=== PATIENT | male | born 1970 | race Caucasian/White ===

== ENCOUNTER 2017-02-14 12:18 | Inpatient (IN) | payer MEDICARE, MEDICAID ==
[2017-02-14] MEDS ORDERED: NALOXONE HCL INJ 2 MG/2 ML DISP.SYRIN ONE (12:52)
--- NOTE | 2017-02-14 12:55 | ER Document Report ---
ED Respiratory Problem <HERBERTH MELO - Last Filed: 02/14/17 15:10> - General Mode of Arrival: Medic Information source: Patient, Emergency Med Personnel - HPI Patient complains to provider of: Short of breath Associated symptoms: Other - See above <KRISTAN YING - Last Filed: 02/14/17 15:13> - General Chief Complaint: Breathing Difficulty Stated Complaint: short of breath Time Seen by Provider: 02/14/17 12:55 Notes: Patient is a 46 year old male, with a past medical history including ulcers, who presents to the emergency department via EMS complaining of shortness of breath. Patient is an alcoholic and reports his last drink was yesterday, normally patient will consume a 12 pack of beer a day and does experience withdrawal seizures, patient states that he is currently felling shaky but has not had a seizure. Patient reports blurry vision and back pain which are not new. Per EMS patient has vomited with brown emesis. Patient denies chest pain, and blood in stools. Patient is not on home oxygen. Patient reports that he takes Percocet daily and did take one this morning but vomited it up. (KRISTAN YING) Past Medical History - General Information source: Patient - Social History Smoking Status: Current Every Day Smoker Frequency of alcohol use: Heavy Family History: Reviewed & Not Pertinent Pulmonary Medical History: Reports: Hx Pneumonia GI Medical History: Reports: Hx Ulcer <KRISTAN YING - Last Filed: 02/14/17 15:13> Review of Systems - Review of Systems Constitutional: No symptoms reported EENT: No symptoms reported Cardiovascular: denies: Chest pain Respiratory: See HPI, Short of breath Gastrointestinal: See HPI, Vomiting. denies: Blood streaked bowels Genitourinary: No symptoms reported Male Genitourinary: No symptoms reported Musculoskeletal: No symptoms reported Skin: No symptoms reported Hematologic/Lymphatic: No symptoms reported Neurological/Psychological: Tremor - shaky -: Yes All other systems reviewed and negative <KRISTAN YING - Last Filed: 02/14/17 15:13> Physical Exam - Vital signs Interpretation: Normal - General General appearance: Alert - HEENT Head: Normocephalic, Atraumatic - Respiratory Respiratory status: No respiratory distress Chest status: Nontender Breath sounds: Wheezing - bilateral Chest palpation: Normal - Cardiovascular Rhythm: Regular Heart sounds: Normal auscultation Murmur: No Pulses: Normal: Femoral, Dorsalis pedis - Abdominal Inspection: Normal Distension: No distension Bowel sounds: Normal Tenderness: Nontender Organomegaly: No organomegaly - Back Back: Normal, Nontender - Extremities General upper extremity: Normal inspection General lower extremity: Normal inspection - Neurological Neuro grossly intact: Yes Cognition: Normal Orientation: AAOx4 Romel Coma Scale Eye Opening: Spontaneous Romel Coma Scale Verbal: Oriented Romel Coma Scale Motor: Obeys Commands [place] Coma Scale Total: 15 Speech: Normal - Psychological Associated symptoms: Normal affect, Normal mood - Skin Skin Temperature: Warm Skin Moisture: Dry Skin Color: Normal <DEONNAKRISTAN - Last Filed: 02/14/17 15:13> - Vital signs Vitals: Temp Pulse Resp BP Pulse Ox 99.9 F 132 H 30 H 97/67 L 89 L 02/14/17 12:42 02/14/17 12:42 02/14/17 12:42 02/14/17 12:42 02/14/17 12:42 Course - Laboratory Result Diagrams: 02/14/17 12:50 02/14/17 12:50 <HERBERTH MELO - Last Filed: 02/14/17 15:10> - Laboratory Result Diagrams: 02/14/17 12:50 02/14/17 12:50 - Consults Dr. Silva Time consulted: 15:06 Consulted provider: will see as inpatient, other <KRISTAN YING - Last Filed: 02/14/17 15:13> - Re-evaluation Re-evalutation: 02/14/17 12:57 Patient presents the emergency department via EMS with chief complaint of difficulty breathing. Patient is a chronic alcoholic normally drinks about 12 or more beers a day. States he has not had a drink since yesterday. Says he has had a history of alcohol withdrawal with seizures in the past. Says he is not having any symptoms of withdrawal today. Had a pneumonia episode a couple months back and continues to smoke with a history of COPD. Also has a history of upper GI bleed with ulcers. He has been seen and evaluated in [place] and had upper and lower GI scopes and was diagnosed with ulcers in the past. He says his primary care physician is a local nurse practitioner physician speech language assistant who gives him 120 Percocet a month but does not know that he drinks alcohol with it. He denies any additional NSAID use. He denies any chest pain or pressure says he is never had a heart attack in the past. Denies any nausea vomiting or urinary symptoms. EMS stated that he had an episode of vomiting which was brown but it looked like coffee ground. He reports a normal bowel movement yesterday with no blood in it. On examination he is tachycardic rate in the 160s. Pulse ox is 8688% on room air. Blood pressure is 91/61. 2 large- bore IVs are started patient is given fluids Narcan and placed on oxygen. EKG chest x-ray stat labs got vomit at the bedside within a Gastroccult. Additional laboratory evaluation including liver enzymes lactic acid. Abdomen is soft no acute tenderness guarding rebound rigidity 02/14/17 15:10 Patient with presentation to the emergency department workup for SIRS sepsis criteria improved blood pressure with IV fluids remains tachycardic but not as tachycardic as he was. Acute bilateral pneumonia blood cultures and IV antibiotics oxygen and breathing treatments. Also hypomagnesemic order the magnesium. He had an episode of vomiting where he was retching on the ambulance before he got here vomit was brown with some bright blood in it likely a Adri-Wan tear. No active vomiting in the vomit is slightly Gastroccult positive brown stool from below. The hospitalist who has agreed to admit to the hospital to the IMC unit. (HERBERTH MELO) - Vital Signs Vital signs: Temp Pulse Resp BP Pulse Ox 99.9 F 132 H 27 H 116/80 95 02/14/17 12:42 02/14/17 12:42 02/14/17 13:26 02/14/17 13:26 02/14/17 13:38 - Laboratory Laboratory results interpreted by me: 02/14/17 02/14/17 02/14/17 12:50 12:50 12:50 WBC 11.6 H RBC 4.21 L Hgb 10.3 L Hct 33.3 L MCV 79 L MCH 24.5 L MCHC 31.0 L RDW 21.0 H Band Neutrophils % 17 H Lymphocytes % (Manual) 2 L Abs Neuts (Manual) 11.0 H Abs Lymphs (Manual) 0.2 L Carbonic Acid ABG pH ABG pCO2 ABG pO2 ABG O2 Saturation Sodium 135.7 L Chloride 96 L Creatinine 1.61 H Est GFR ( Amer) 56 L Est GFR (Non-Af Amer) 46 L Glucose 71 L Calcium 8.0 L Magnesium 0.9 L* Albumin 3.1 L 02/14/17 13:40 WBC RBC Hgb Hct MCV MCH MCHC RDW Band Neutrophils % Lymphocytes % (Manual) Abs Neuts (Manual) Abs Lymphs (Manual) Carbonic Acid 1.52 H ABG pH 7.30 L ABG pCO2 50.4 H ABG pO2 135.2 H ABG O2 Saturation 98.4 H Sodium Chloride Creatinine Est GFR ( Amer) Est GFR (Non-Af Amer) Glucose Calcium Magnesium Albumin Critical Care Note - Critical Care Note Total time excluding time spent on procedures (mins): 65 <HERBERTH MELO - Last Filed: 02/14/17 15:10> Discharge - Discharge Admitting Provider: Hospitalist Unit Admitted: IMCU <HERBERTH MELO - Last Filed: 02/14/17 15:10> <KRISTAN YING - Last Filed: 02/14/17 15:13> - Discharge Clinical Impression: acute bilateral pneumonia, Alcoholism, Hypomagnesemia Vomiting Qualifiers: Vomiting type: unspecified Vomiting Intractability: unspecified Nausea presence : unspecified Qualified Code(s): R11.10 - Vomiting, unspecified Condition: Stable Disposition: ADMITTED INPATIENT Scribe Attestation: 02/14/17 12:59 I personally performed the services described in the documentation reviewed the documentation recorded by my scribe in my presence and it accurately and completely records my words and actions (HERBERTH MELO) Scribe Documentation - Scribe Written by Aram:: aram Villalba, 02/14/17, [id number] acting as scribe for :: Gordon <KRISTAN YING - Last Filed: 02/14/17 15:13>
[2017-02-14] MEDS ORDERED: NORMAL SALINE 1000 ML 2,000 ML IV ONE (12:56)
[2017-02-14 13:29] LABS: HEMATOCRIT 33.3 % (37.9-51.0); HEMOGLOBIN 10.3 g/dL (13.5-17.0); HGB HCT DIFFERENCE -2.4; MEAN CORPUSCULAR HEMOGLOBIN 24.5 pg (27.0-33.4); MEAN CORPUSCULAR VOLUME 79 fl (80-97); RED BLOOD COUNT 4.21 10^6/uL (4.35-5.55); WHITE BLOOD COUNT 11.6 10^3/uL (4.0-10.5)
[2017-02-14 13:33] LABS: PROTHROMBIN TIME 13.3 SEC (11.4-15.4)
[2017-02-14 13:42] LABS: ALANINE AMINOTRANSFERASE 32 U/L (21-72); ALBUMIN 3.1 g/dL (3.5-5.0); ALKALINE PHOSPHATASE 82 U/L (38-126); ANION GAP 15 (5-19); ASPARTATE AMINO TRANSFERASE 46 U/L (17-59); BILIRUBIN,DIRECT 0.4 mg/dL (0.0-0.4); BILIRUBIN,TOTAL 0.6 mg/dL (0.2-1.3); BLOOD UREA NITROGEN 8 mg/dL (7-20); CARBON DIOXIDE 25 mmol/L (22-30); CHLORIDE 96 mmol/L (98-107); CREATININE RESULT 1.61 mg/dL (0.52-1.25); GLUCOSE 71 mg/dL (75-110); POTASSIUM 3.6 mmol/L (3.6-5.0); SODIUM 135.7 mmol/L (137-145); TOTAL PROTEIN 6.9 g/dL (6.3-8.2)
[2017-02-14 13:49] LABS: BASOPHILS % (MANUAL) 0 % (0-2); EOSINOPHILS % (MANUAL) 0 % (0-6); LYMPHOCYTES % (MANUAL) 2 % (13-45); TOTAL CELLS COUNTED 100
[2017-02-14 13:50] LABS: ANISOCYTOSIS 2+; BAND NEUTROPHILS % (MANUAL) 17 % (3-5); HYPOCHROMASIA 2+; MICROCYTOSIS 1+; POLYCHROMASIA SLIGHT
[2017-02-14 14:09] LABS: ARTERIAL BLOOD BASE EXCESS -2.8 mmol/L; ARTERIAL BLOOD O2 SATURATION 98.4 % (94-98)
[2017-02-14] MEDS ORDERED: AZITHROMYCIN INJ 500 MG VIAL IV ONE (14:48)
[2017-02-14] MEDS ORDERED: CEFTRIAXONE INJ 1000 MG VIAL IV ONE (14:48)
[2017-02-14] MEDS: MAGNESIUM SULFATE/D5W 100 ML IV SCH ×2 (15:10→16:21)
--- NOTE | 2017-02-14 15:14 | Progress Note ---
Provider Note Provider Note: RAMIRO ARNOLD Search Criteria: Last Name 'Ramiro' and First Name 'Sang' and = [birth year] ' and Request Period = '08/18/16' to 02/14/17' - 6 out of 6 Recipients Selected. Fill Date Product, Str, Form Qty Days Pt ID Prescriber Written RX# N/R* Pharm MED+ ------ ---- --------- --- ------- ----- --------- 01/30/2017 OXYCODONE HCL 15 MG TABLET 120.00 30 [id number] 01/30/2017 [id number] N [id number] 90.0 01/28/2017 ALPRAZOLAM 1 MG TABLET 90.00 30 [id number] 12/29/2016 [id number] N [id number] 00.0 12/31/2016 OXYCODONE HCL 15 MG TABLET 120.00 30 [id number] 12/31/2016 [id number] N [id number] 90.0 12/29/2016 ALPRAZOLAM 1 MG TABLET 90.00 30 [id number] 10/03/2016 [id number] R [id number] 00.0 12/01/2016 OXYCODONE HCL 15 MG TABLET 120.00 30 [id number] 12/01/2016 [id number] N [id number] 90.0 11/28/2016 ALPRAZOLAM 1 MG TABLET 90.00 30 [id number] 10/03/2016 [id number] R [id number] 00.0 11/03/2016 OXYCODONE HCL 15 MG TABLET 120.00 30 [id number] 10/31/2016 [id number] N [id number] 90.0 10/29/2016 ALPRAZOLAM 1 MG TABLET 90.00 30 [id number] 10/03/2016 [id number] N [id number] 00.0 10/03/2016 OXYCODONE HCL 15 MG TABLET 120.00 30 [id number] 10/03/2016 [id number] N [id number] 90.0 09/29/2016 ALPRAZOLAM 1 MG TABLET 90.00 30 [id number] 08/04/2016 [id number] R [id number] 00.0 09/01/2016 ALPRAZOLAM 1 MG TABLET 90.00 30 [id number] 08/04/2016 [id number] 00.0 [id number] CHRISTA ERVIN; [facility], [address] , [address], [facility] [address] [id number] [facility]; [facility], [address], [address], S [id number] RAMIRO Jenkins, [facility] 68; [address] [facility] [id number] RAMIRO ARNOLD, [facility] 68; [facility] [address] [id number] RAMIRO ARNOLD, [facility] 68; [address] [id number] [id number] RAMIRO Jenkins, [facility] 68; [address] [facility] [id number] RAMIRO ARNOLD, [facility] 68; [address], [facility] [address] [id number] RAMIRO ARNOLD [facility] 68; [address], [facility] [address]
[2017-02-14] MEDS ORDERED: (PENDING PHARMACY ID) (Esomeprazole Magnesium [Nexium 24hr] 40 MG) PO SCH (16:15)
[2017-02-14] MEDS ORDERED: LEVALBUTEROL HCL NEB 0.63 MG/3 ML AMPUL NEB PRN (16:15)
[2017-02-14] MEDS ORDERED: [UNRECOGNIZED DRUG - OTHER] PO PRN (16:40)
[2017-02-14] MEDS ORDERED: OXYCODONE HCL IR 5 MG TABLET PO PRN (17:01)
[2017-02-14] MEDS ORDERED: LANSOPRAZOLE 30 MG TAB.RAP.DR PO ONE (17:30)
--- NOTE | 2017-02-14 17:47 | EKG REPORT ---
SEVERITY:- BORDERLINE ECG - SINUS TACHYCARDIA PROBABLE LEFT ATRIAL ABNORMALITY BORDERLINE LEFT AXIS DEVIATION : Confirmed by: Dayanara Tmo MD 14-Feb-2017 17:46:53
[2017-02-14] MEDS: GABAPENTIN 300 MG CAPSULE PO SCH (17:53)
[2017-02-14] MEDS: MAGNESIUM OXIDE 400 MG TABLET PO SCH (17:54)
[2017-02-14] MEDS: LORAZEPAM 1 MG TABLET PO PRN ×2 (17:54→22:13)
[2017-02-14] MEDS: [UNRECOGNIZED DRUG - OTHER] PO PRN (17:54)
[2017-02-14] MEDS: IMIPENEM/CILASTATIN SODIUM 500 MG in NORMAL SALINE 100 ML IV SCH ×2 (17:59→23:43)
[2017-02-14 18:50] LABS: APPEARANCE,URINE SLIGHTLY-CLOUDY; BILIRUBIN,URINE NEGATIVE (NEGATIVE); GLUCOSE, URINE NEGATIVE (NEGATIVE); KETONES,URINE TRACE mg/dL (NEGATIVE); LEUKOCYTE ESTERASE,URINE NEGATIVE (NEGATIVE); NITRITE,URINE NEGATIVE (NEGATIVE); PROTEIN,URINE NEGATIVE (NEGATIVE); URINE SPECIFIC GRAVITY 1.008; UROBILINOGEN,URINE NEGATIVE mg/dL (<2.0)
[2017-02-14] MEDS ORDERED: NICOTINE 21 MG/24 HR PATCH.TD24 TD PRN (19:17)
--- NOTE | 2017-02-14 19:36 | HISTORY AND PHYSICAL E ---
History and Physical NAME: CLAYTON GORMAN : 1970 AGE: 46Y ADMITTED: 02/14/2017 ROOM: 320 PRIMARY CARE PROVIDER: Christy Shaffer in [place], [place]. CODE STATUS: FULL CODE. CHIEF COMPLAINT: Shortness of breath. HISTORY OF PRESENT ILLNESS: The patient is a 46-year-old male with a past medical history of tobacco dependency and subsequent chronic obstructive pulmonary disease, alcohol dependency and opiate dependency. The patient presented to the emergency department with a chief complaint of shortness of breath. According to the patient, he stated that he became extremely short of breath about 3 hours prior to presentation. The patient states that he lives with a nurse and that she "listened to his lungs and said he needed to come to the hospital," therefore, notified EMS and the patient was brought to the emergency department. While en route the patient did have an episode of vomitus which was seemed to be brown but no coffee grounds and no hematemesis. The patient denied any chest pain. The patient says he is not on oxygen at home but feels like he needs it. The patient also states that he has had multiple admissions to [facility] due to pneumonia and lung issues. We will obtain records of this. The patient is opiate and benzodiazepine dependent. The patient also states that he drinks anywhere from 12 to 24 beers in a day's process. The patient states that if he goes more than 24 hours without a beer that he has a seizure and that this is a common occurrence for him if he were to go without alcohol. When asked, the patient declines any help with it and does not voice a desire for alcohol cessation at this time. Upon presentation the patient was found to have oxygen saturation of 85% on room air, respiratory rate of 30, heart rate of 132. The patient was placed on a nonrebreather and was referred to the hospitalist for admission and management. while in emergency department, the patient did receive a dose of Zithromax, Rocephin and nebulizers. He was also given Narcan and a bag of mag. HOME MEDICATIONS: 1. Xanax 1 mg p.o. t.i.d. p.r.n. 2. Symbicort HFA 160/4.5 two puffs inhalation q.12 h. 3. Celexa 40 mg p.o. daily. 4. Nexium 40 mg p.o. daily. 5. Gabapentin 600 mg p.o. t.i.d. 6. Fish oil plus vitamin D3 1 capsule p.o. daily. 7. OxyIR 15 mg p.o. q.i.d. 8. Phenergan 25 mg p.o. q.6 h. p.r.n. SOCIAL HISTORY: The patient currently resides at home. If he becomes incapacitated, his mother, Sheron, will be his surrogate decision maker. The patient is currently unemployed due to arthritis in his lower back. The patient is a pack-a-day smoker and a heavy drinker consisting of 12-24 beers a day. The patient denies any illicit drug use. FAMILY HISTORY: The patient's mother is alive. He denies any health problems with her. The patient's father is also alive with no health problems. The patient does have siblings, all of which are healthy. The patient also states he has children who are healthy. The patient denies any family history of chronic health problems. REVIEW OF SYSTEMS: CONSTITUTIONAL: The patient denies any dizziness but is positive for fevers, chills, weakness and loss of appetite. INTEGUMENTARY: The patient denies any diaphoresis, rash or bruising. HEENT: Denies any vision change, hearing loss, nasal drainage, sore throat or headache. CARDIOVASCULAR: Denies any chest pain or edema. Positive for heart palpitations. RESPIRATORY: Denies any hemoptysis but positive for shortness of breath, cough and sputum production. GASTROINTESTINAL: The patient denies any diarrhea, abdominal pain, bloating, hematemesis, constipation, melena, hematochezia. Positive for nausea with vomiting. GENITOURINARY: Denies any hematuria, pyuria or dysuria. MUSCULOSKELETAL: Patient admits to chronic lower back pain and joint pain. NEUROLOGIC: Denies seizures, tremors or loss of consciousness in the last couple of weeks, but the patient admits to frequent withdrawal seizures if he runs out of alcohol. HEMATOLOGICAL: The patient denies any pop bleeding but admits to easy bruising. ENDOCRINE: Denies any recent weight change. PSYCHIATRIC: Denies suicidal or homicidal ideation. The rest of the review of the other organ systems is negative. PHYSICAL EXAMINATION: GENERAL: On examination, the patient is a well-developed, frail, chronically ill-appearing, unkempt 46-year-old male who is awake and alert. He is oriented to person, place, time and situation. He is in moderate distress. VITAL SIGNS: Temperature 100.5, pulse 108, respirations currently 21, blood pressure is 114/91, oxygen saturation is 92% on 4 L nasal cannula. SKIN: Warm and dry. No rash, not diaphoretic. HEENT: Pupils are equal, round, and reactive to light and accommodation. Conjunctivae pink. Sclerae nonicteric. There are no mouth lesions. Tongue is midline. NECK: Supple. No JVD. No palpable lymphadenopathy or thyromegaly. CARDIOVASCULAR: Heart is regular, tachycardic, no murmur or rub. CHEST: Diminished. Expiratory wheezes noted upper lung menjivar, symmetrical, labored. Appears tachypneic at times. ABDOMEN: Soft, nontender, nondistended. Bowel sounds are present. No palpable organomegaly. BACK: No CVA tenderness or sacral edema. EXTREMITIES: No clubbing, cyanosis or edema or peripheral signs of embolization. There are +2 pedal pulses are noted bilaterally. PSYCHIATRIC: The patient does have a nervous affect, somewhat flat but is pleasant. DIAGNOSTICS: Labs are as follows: Hematology on 02/14/2017: WBC 11.6, hemoglobin 10.3, hematocrit 33.3, platelet count is 195,000. Coagulation obtained on 02/14/2017: PT 13.3, INR 0.98. VBG obtained on 02/14/2017: pH 7.3, PCO2 50, PO2 is 135, bicarb is 24. Chemistry obtained on 02/14/2017: Sodium 135, potassium 3.6, chloride 36, carbon dioxide 35, BUN 8, creatinine 1.61, glucose 71, lactic acid 1.9, calcium 8, magnesium is 0.9, bilirubin 0.6, AST 46, ALT 32, alkaline phosphatase 82, total protein 6.9, albumin 3.1. Troponin is 0.016. Other body source: Gastric occult blood is positive. Stool for occult blood is negative. Microbiology: Blood culture obtained on 02/14/2017 are pending. Chest x-ray obtained on 02/14/2017 reveals bilateral pneumonia. EKG obtained on 02/14/2017 reveals sinus tachycardia with left atrial abnormality. IMPRESSION AND PLAN: 1. Chronic obstructive pulmonary disease exacerbation. Will start the patient on Singulair and add nebulizers and steroids right now. 2. Bilateral pneumonia. Given the patient's risk factors, could be a gram-negative etiology as well as possible aspiration. Will cover with carbapenem for now. Will also add Mucinex, incentive spirometry, flutter valve and follow. 3. Ahakr-wx-bzcokec hypoxemic and hypercapnic respiratory failure. Will discontinue nonrebreather. Will place the patient on nasal cannula. He appears relatively comfortable at this time. Will repeat VBG and if the patient's PCO2 remains elevated, will place on BiPAP as needed; however, the patient appears to be moving in the right direction at this time. 4. Alcohol dependency with history of withdrawal seizure. The patient appears very sensitive to this. Given the patient's respiratory status, do not feel comfortable with a significant amount of benzodiazepines, so we will schedule beer q.i.d. to curb withdrawals. Will supplement B vitamins. 5. Opioid dependency, continuous. Will resume the patient's home opiates but at a reduced dose. 6. Hypomagnesemia. This has been repleted in the ER; however, given the patient's alcoholism, will supplement this. 7. Elevated creatinine. Unsure if the patient has an underlying element of chronicity to this, as I do not have a creatinine for comparison; however, will hydrate for now and monitor, repeat labs in the a.m. and follow. 8. Nausea and vomiting. This has appeared to have resolved. The patient feels this may be from not getting his Nexium. We will start the patient on PPI therapy as well as p.r.n. antiemetics and repeat CBC in the a.m. and follow. 9. DVT prophylaxis. Will defer pharmacological intervention at this time given that the patient has a history of peptic ulcer disease and has had some vomiting, uncertain that he may have underlying varices and so forth so will defer that for now and place SCDs. DISPOSITION: The patient is a FULL CODE. Pending patient's symptomatology and diagnostic findings, will evaluate as needed. Will admit the patient to inpatient IMCU, as the patient's expected length of stay will surpass 2 midnights given the need for IV antibiotics and risk for decompensation. Time spent on this admission including assessment, plan, physical examination and patient education is 50 minutes. DICTATING PHYSICIAN: JARED ALMANZA NP [id number] PHY#: [id number] ID: [id number] JOB#: [id number] ACCT: [id number] cc:JARED ALMANZA NP >
[2017-02-14] MEDS: POTASSI CL 20 MEQ/1/2NS 1L 1,000 ML IV PRN (19:41)
[2017-02-14] MEDS: LEVALBUTEROL HCL NEB 1.25 MG/3 ML AMPUL NEB SCH (20:37)
[2017-02-14] MEDS ORDERED: HEPARIN SOD (PORCINE) 5,000 UNIT/ML 1 ML SYRINGE SUBCUT SCH (22:00)
[2017-02-14] MEDS: GUAIFENESIN 600 MG TABLET.SA PO SCH (22:12)
[2017-02-14] MEDS: METHYLPREDNISOLONE INJ 125 MG/2 ML SDV IV SCH (22:12)
[2017-02-14] MEDS: MONTELUKAST SODIUM 10 MG TABLET PO SCH (22:13)
[2017-02-14] MEDS: BUDESONIDE/FORMOTEROL 160-4.5 MCG 60 PUFF/6 GM MDI IH SCH (22:16)
[2017-02-14] MEDS: FLUTICASONE NASAL SPRAY 50 MCG/SPRY 120 SPRAY/16 GM NASL SCH (22:17)
[2017-02-15] MEDS: GABAPENTIN 300 MG CAPSULE PO SCH ×2 (01:08→09:21)
[2017-02-15] MEDS: LORAZEPAM 1 MG TABLET PO PRN (04:03)
[2017-02-15 04:58] LABS: HEMATOCRIT 32.1 % (37.9-51.0); HGB HCT DIFFERENCE -2.1; MEAN CORPUSCULAR HEMOGLOBIN 25.2 pg (27.0-33.4); MEAN CORPUSCULAR HGB CONC 31.2 g/dL (32.0-36.0); MEAN CORPUSCULAR VOLUME 81 fl (80-97); RED BLOOD COUNT 3.98 10^6/uL (4.35-5.55); RED CELL DISTRIBUTION WIDTH 21.3 % (11.5-14.0); WHITE BLOOD COUNT 15.6 10^3/uL (4.0-10.5)
[2017-02-15] MEDS ORDERED: LORAZEPAM INJ 2 MG/1 ML VIAL IV PRN ×2 (05:04)
[2017-02-15] MEDS ORDERED: THIAMINE HCL INJ 200 MG/2 ML VIAL IM ONE (05:15)
[2017-02-15 05:21] LABS: ANION GAP 13 (5-19); BLOOD UREA NITROGEN 8 mg/dL (7-20); CALCIUM 8.3 mg/dL (8.4-10.2); CARBON DIOXIDE 22 mmol/L (22-30); CHLORIDE 102 mmol/L (98-107); CREATININE RESULT 0.68 mg/dL (0.52-1.25); GLUCOSE 106 mg/dL (75-110); MAGNESIUM 1.8 mg/dL (1.6-2.3); SODIUM 137.1 mmol/L (137-145)
[2017-02-15 05:30] LABS: POTASSIUM 4.7 mmol/L (3.6-5.0)
[2017-02-15] MEDS: METHYLPREDNISOLONE INJ 125 MG/2 ML SDV IV SCH ×4 (06:00→21:03)
[2017-02-15] MEDS: IMIPENEM/CILASTATIN SODIUM 500 MG in NORMAL SALINE 100 ML IV SCH ×2 (06:01→11:56)
[2017-02-15] MEDS: LORAZEPAM INJ 2 MG/1 ML VIAL IV PRN ×3 (06:07→21:04)
[2017-02-15] MEDS ORDERED: LORAZEPAM INJ 2 MG/1 ML VIAL ONE (06:08)
[2017-02-15] MEDS: LEVALBUTEROL HCL NEB 1.25 MG/3 ML AMPUL NEB SCH ×4 (08:16→23:40)
[2017-02-15] MEDS: MAGNESIUM OXIDE 400 MG TABLET PO SCH ×2 (09:21→15:36)
[2017-02-15] MEDS: GUAIFENESIN 600 MG TABLET.SA PO SCH ×2 (09:21→21:03)
[2017-02-15] MEDS: CITALOPRAM HYDROBROMIDE 20 MG TABLET PO SCH (09:21)
[2017-02-15] MEDS: LANSOPRAZOLE 30 MG TAB.RAP.DR PO SCH (09:22)
[2017-02-15] MEDS: OMEGA-3 ACID ETHYL ESTERS 1 GM CAPSULE PO SCH (09:22)
[2017-02-15] MEDS: BUDESONIDE/FORMOTEROL 160-4.5 MCG 60 PUFF/6 GM MDI IH SCH ×2 (09:38→21:02)
[2017-02-15] MEDS: FLUTICASONE NASAL SPRAY 50 MCG/SPRY 120 SPRAY/16 GM NASL SCH ×2 (09:38→21:03)
[2017-02-15] MEDS: POTASSI CL 20 MEQ/1/2NS 1L 1,000 ML IV PRN ×2 (09:39→23:42)
[2017-02-15] MEDS ORDERED: FISH OIL PO SCH (10:00)
[2017-02-15] MEDS ORDERED: (PENDING PHARMACY ID) (Citalopram Hydrobromide [Celexa 40 Mg Tablet] 1 TAB) PO SCH (10:00)
[2017-02-15] MEDS ORDERED: EPA PO SCH (10:00)
[2017-02-15] MEDS ORDERED: OMEGA PO SCH (10:00)
[2017-02-15] MEDS ORDERED: D3 PO SCH (10:00)
[2017-02-15] MEDS ORDERED: DHA PO SCH (10:00)
--- NOTE | 2017-02-15 20:33 | PROGRESS NOTE E ---
Progress Note NAME: CLAYTON GORMAN : 1970 AGE: 46Y DATE: 02/15/2017 ROOM: 320 SUBJECTIVE: The patient is currently lying in bed. The patient states that he feels a little better today, just a little shaky. He denies any nausea, vomiting or diarrhea, no dizziness or chest pain. Shortness of breath has improved. He is now able to fully complete sentences. The patient has been afebrile and blood pressure has been in a good range. The patient does not voice any other concerns at this time. REVIEW OF SYSTEMS: Rest of review of systems is negative. MEDICATIONS: Medications have been reviewed. OBJECTIVE: GENERAL: The patient is a 46-year-old male who is awake and alert to person, place, time and situation, just a little groggy. HE does to appear to be in any acute distress. VITAL SIGNS: Temperature is 97.8, pulse 74, respirations 18, blood pressure 122/79, oxygen saturation is 94% on 4 L nasal cannula. SKIN: Warm and dry. No rash, not diaphoretic. HEENT: Pupils are equal, round, reactive to light and accommodation. Conjunctivae pink. NECK: There is no JVD. CARDIOVASCULAR: Heart is regular. There is no murmur or rub. CHEST: Symmetrical, unlabored, diminished. Some expiratory wheeze is noted at the lung menjivar. ABDOMEN: Soft, nontender, nondistended. BACK: No CVA tenderness or sacral edema. EXTREMITIES: No clubbing, cyanosis or edema. PSYCHIATRIC: Flat affect. DIAGNOSTIC DATA: Lab values are as follows: Hematology obtained on 02/15/2017: WBC is 16.6, hemoglobin 10.0, hematocrit 32.1, and platelet count is 165,000. Chemistries obtained on 02/15/2017: Sodium is 137, potassium 4.7, chloride 102, carbon dioxide 22, BUN 8, creatinine 0.68, glucose 106, calcium 8.3, magnesium is 1.8. Blood cultures obtained on 02/14/2017 reveal no growth. Urine culture obtained on 02/14/2017 reveals no growth. IMPRESSION AND PLAN: 1. CHRONIC OBSTRUCTIVE PULMONARY DISEASE EXACERBATION. Will continue Singulair as well as nebulizers. Will begin to taper steroids. 2. BILATERAL PNEUMONIA. Will continue current coverage given that the patient is at risk for gram-negative and aspiration etiology. Will continue Mucinex and incentive spirometry as well as flutter valve. 3. [id number] HYPOXEMIC AND HYPERCAPNIC RESPIRATORY FAILURE. The patient has done well on nasal cannula. Will obtain blood gas in the a.m. Will also hopefully can ambulate the patient in the a.m. and monitor oxygen saturation. He may need home 02. 3. ALCOHOL DEPENDENCY WITH HISTORY OF WITHDRAWAL SEIZURES. Will continue alcohol q.i.d. as needed. 4. OPIATE DEPENDENCY. This is continuous. Continue home opiates at a reduced dose. 5. HYPOMAGNESEMIA. This has been repleted in the ER. 6. ACUTE KIDNEY INJURY. This did resolve with excessive hydration. 7. NAUSEA AND VOMITING. This has resolved. 8. DVT PROPHYLAXIS. Will continue SCDs. DISPOSITION: The patient is a FULL CODE. Pending the patient's symptomatology and diagnostic findings, will re-evaluate in the a.m. for possible discharge. TIME: Time spent on this followup including assessment, plan, physical examination and patient education, is 25 minutes. DICTATING PHYSICIAN: JARED ALMANZA NP [id number] PHY#: [id number] ID: [id number] JOB#: [id number] ACCT: [id number] cc: >
[2017-02-15] MEDS: MONTELUKAST SODIUM 10 MG TABLET PO SCH (21:03)
[2017-02-16] MEDS: IMIPENEM/CILASTATIN SODIUM 500 MG in NORMAL SALINE 100 ML IV SCH ×5 (01:02→23:26)
[2017-02-16] MEDS: LORAZEPAM INJ 2 MG/1 ML VIAL IV PRN ×9 (02:05→22:38)
[2017-02-16] MEDS: METHYLPREDNISOLONE INJ 125 MG/2 ML SDV IV SCH ×3 (05:04→21:06)
[2017-02-16 05:06] LABS: ALANINE AMINOTRANSFERASE 28 U/L (21-72); ALBUMIN 2.9 g/dL (3.5-5.0); ALKALINE PHOSPHATASE 67 U/L (38-126); ANION GAP 9 (5-19); ASPARTATE AMINO TRANSFERASE 30 U/L (17-59); BILIRUBIN,DIRECT 0.4 mg/dL (0.0-0.4); BILIRUBIN,TOTAL 0.6 mg/dL (0.2-1.3); BLOOD UREA NITROGEN 7 mg/dL (7-20); CALCIUM 8.7 mg/dL (8.4-10.2); CARBON DIOXIDE 25 mmol/L (22-30); CHLORIDE 100 mmol/L (98-107); CREATININE RESULT 0.48 mg/dL (0.52-1.25); GLUCOSE 141 mg/dL (75-110); MAGNESIUM 1.6 mg/dL (1.6-2.3); POTASSIUM 4.2 mmol/L (3.6-5.0); SODIUM 133.6 mmol/L (137-145); TOTAL PROTEIN 6.9 g/dL (6.3-8.2)
[2017-02-16] MEDS: GABAPENTIN 300 MG CAPSULE PO SCH ×3 (05:59→17:14)
[2017-02-16] MEDS: LEVALBUTEROL HCL NEB 1.25 MG/3 ML AMPUL NEB SCH ×2 (08:32→16:41)
[2017-02-16] MEDS: OMEGA-3 ACID ETHYL ESTERS 1 GM CAPSULE PO SCH (09:04)
[2017-02-16] MEDS: MAGNESIUM OXIDE 400 MG TABLET PO SCH ×3 (09:05→17:14)
[2017-02-16] MEDS: GUAIFENESIN 600 MG TABLET.SA PO SCH ×2 (09:05→21:06)
[2017-02-16] MEDS: LANSOPRAZOLE 30 MG TAB.RAP.DR PO SCH (09:05)
[2017-02-16] MEDS: [UNRECOGNIZED DRUG - OTHER] PO PRN ×4 (09:05→21:07)
[2017-02-16] MEDS: FLUTICASONE NASAL SPRAY 50 MCG/SPRY 120 SPRAY/16 GM NASL SCH ×2 (09:06→21:07)
[2017-02-16] MEDS: BUDESONIDE/FORMOTEROL 160-4.5 MCG 60 PUFF/6 GM MDI IH SCH ×2 (09:06→21:07)
[2017-02-16] MEDS: CITALOPRAM HYDROBROMIDE 20 MG TABLET PO SCH (09:11)
--- NOTE | 2017-02-16 10:23 | RADIOLOGY REPORT (SQ) ---
EXAM DESCRIPTION: CHEST PA/LAT COMPLETED DATE/TIME: 02/16/2017 10:13 am REASON FOR STUDY: FU PNA COMPARISON: None. EXAM PARAMETERS: NUMBER OF VIEWS: two views TECHNIQUE: Digital Frontal and Lateral radiographic views of the chest acquired. RADIATION DOSE: NA LIMITATIONS: none FINDINGS: LUNGS AND PLEURA: There is considerable opacification both lungs suggestive of pulmonary e sandhya. There is a small right pleural effusion. No localized infiltrate is appreciated. MEDIASTINUM AND HILAR STRUCTURES: No masses or contour abnormalities. HEART AND VASCULAR STRUCTURES: Cardiomegaly with pulmonary vascular congestion and apparent pulmonary edema. BONES: No acute findings. HARDWARE: None in the chest. OTHER: No other significant finding. IMPRESSION: 1. Cardiomegaly with CHF. There is a small right pleural effusion. 2. A pneumonia cannot be ruled out and either lung. TECHNICAL DOCUMENTATION: JOB ID: [id number] [employer]- All Rights Reserved
[2017-02-16] MEDS ORDERED: FUROSEMIDE INJ/PF 40 MG/4 ML SDV IV ONE (11:14)
--- NOTE | 2017-02-16 11:44 | PROGRESS NOTE E ---
Progress Note NAME: CLAYTON GORMAN : 1970 AGE: 46Y DATE: 02/16/2017 ROOM: 320 SUBJECTIVE: The patient was seen on rounds. The patient is currently lying in bed. The patient was a little groggy but was able to answer questions briefly. The patient states that his breathing has improved. The patient denied having any heart history or ever seeing a care aid. The patient stated that he had never been told he had a murmur. There have been no reported episodes of vomiting nor diarrhea. The patient has not had any overt evidence of withdrawal at this time. The patient does not voice any other concerns at this time. REVIEW OF SYSTEMS: The rest of the review of systems is negative. MEDICATIONS: Medications have been reviewed. OBJECTIVE: GENERAL: The patient is a 46-year-old male who is awake and alert, a little groggy. He does not appear to be in any acute distress. VITAL SIGNS: Temperature is 97.6, pulse 76, respirations 20, blood pressure is 153/93, and oxygen saturation is 91% on 4 L nasal cannula. SKIN: Warm and dry. No rash. He is not diaphoretic. HEENT: Pupils are equal, round and reactive to light and accommodation. Conjunctiva is pink. The patient does have JVP to the level of the right clavicle. CARDIOVASCULAR: Heart is regular. No murmur or rub. CHEST: The patient does have bilateral basal crackles. ABDOMEN: Soft, nontender, nondistended. Bowel sounds are present. BACK: No CVA tenderness or sacral edema. EXTREMITIES: No clubbing, cyanosis or edema. PSYCHIATRIC: Flat affect. DIAGNOSTICS: Lab values are as follows. Hematology obtained on 02/15/2017: WBCs are 15.6, hemoglobin is 10, hematocrit is 32.1, platelet count is 165,000. Chemistry obtained on 02/16/2017: Sodium is 133, potassium 4.2, chloride is 100, carbon dioxide is 25, BUN 7, creatinine 0.48, glucose 141, calcium is 8.7, magnesium is 1.6, total bilirubin is 0.6, AST 30, ALT 28, alk phos 67, total protein 3.9, albumin 2.9. Blood cultures obtained on 02/14/2017 reveal no growth. Urine culture obtained on 02/14/2017 reveals no growth. Chest x-ray obtained on 02/16/2017 does have evidence of CHF which is new. IMPRESSION AND PLAN: 1. CHRONIC OBSTRUCTIVE PULMONARY DISEASE EXACERBATION. Will continue Singulair as well as nebulizers, supplement O2 and taper steroids. 2. BILATERAL PNEUMONIA. This part does appear improved, but, given the patient's history and recent admission, will continue current coverage as he is also at risk for aspiration etiology. Will continue Mucinex as well, incentive spirometer and flutter valve. 3. ACUTE ON CHRONIC HYPOXEMIC AND HYPERCAPNIC RESPIRATORY FAILURE. The patient is still requiring a significant amount of O2. Hopefully demand will improve with diuresis. 4. ALCOHOL DEPENDENCY WITH HISTORY OF WITHDRAWAL SEIZURES. Will continue alcohol q.i.d. and benzodiazepines p.r.n. 5. OPIATE DEPENDENCY. This is continuous. Continue home opiates at a reduced dose. 6. HYPOMAGNESEMIA. This was repleted in the ER. Will repeat. 7. ACUTE KIDNEY INJURY. This did resolve with hydration. 8. NAUSEA AND VOMITING. This has been resolved. 9. DVT PROPHYLAXIS. Will continue SCDs. 10. VOLUME OVERLOAD. The patient does have appearance of CHF on chest x-ray. This may be due to excessive volume resuscitation. However, given the patient's alcoholism, is concern for myocarditis. Will obtain echocardiogram as well as BNP. Will give a dose of Lasix and follow. DISPOSITION: THE PATIENT IS A FULL CODE. Pending the patient's symptomatology and diagnostic findings, will re-evaluate in the a.m. Time spent on this followup, including assessment/plan, physical examination, patient education, and review of records, is 25 minutes. DICTATING PHYSICIAN: JARED ALMANZA NP [id number] PHY#: [id number] ID: [id number] JOB#: [id number] ACCT: [id number] cc: >
[2017-02-16 13:31] LABS: ARTERIAL BLOOD BASE EXCESS 5.7 mmol/L; ARTERIAL BLOOD O2 SATURATION 97.1 % (94-98)
[2017-02-16 14:57] LABS: PATH REVIEW PATHOLOGIST REVIEWED
[2017-02-16] MEDS ORDERED: LORAZEPAM INJ 2 MG/1 ML VIAL ONE (15:21)
[2017-02-16] MEDS ORDERED: LORAZEPAM INJ 2 MG/1 ML VIAL IM ONE (15:45)
[2017-02-16] MEDS: LACTOBACILLUS ACIDOPHILUS 250 MG TAB PO SCH (18:24)
--- NOTE | 2017-02-16 18:40 | XCELERA REPORT ---
[address] [address] Transthoracic Echocardiogram Report Name: CLAYTON GORMAN Age: 46 yrs Gender: Male : 1970 Patient Status: Inpatient Patient Location: 3W\S\320\S\A Study Date: 02/16/2017 11:23 AM Height: 69 in Weight: 158 lb BSA: 1.9 m2 Procedure: A complete two-dimensional transthoracic echocardiogram was performed (2D, M-mode, spectral and color flow Doppler). The study was technically difficult with many images being suboptimal in quality. Reason For Study: Edema Ordering Physician: JARED ALMANZA Performed By: Sandra Hilario Interpretation Summary The left ventricular ejection fraction is normal. Doppler measurements suggest impaired left ventricular relaxation, which is associated with grade I/IV or mild diastolic dysfunction There is borderline concentric left ventricular hypertrophy. The left ventricle is grossly normal size. The right ventricle is mild to moderately dilated. The right ventricular systolic function is normal. The right atrium is normal in size The left atrial size is normal. There is no mitral valve stenosis. There is a trace amount of mitral regurgitation There is no aortic valve stenosis No aortic regurgitation is present. There is a trace or physiologic amount of tricuspid regurgitation Tricuspid regurgitation jet envelope not well defined to measure RV systolic pressure accurately. The aortic root is not well visualized but is probably normal size. The inferior vena cava was not well visualized There is no pericardial effusion. MMode/2D Measurements \T\ Calculations RVDd: 4.0 cm LVIDd: 4.3 cm FS: 38.5 % Ao root diam: 3.6 cm IVSd: 0.91 cm LVIDs: 2.7 cm EDV(Teich): 84.8 ml LVPWd: 0.94 cm ESV(Teich): 26.2 ml Ao root area: 10.0 cm2 EF(Teich): 69.1 % LA dimension: 3.5 cm Doppler Measurements \T\ Calculations MV E max lawrence: MV P1/2t max lawrence: Ao V2 max: LV V1 max P.6 cm/sec 107.1 cm/sec 134.7 cm/sec 4.9 mmHg MV A max lawrence: MV P1/2t: 50.0 msec Ao max PG: LV V1 max: 88.8 cm/sec 7.3 mmHg 110.6 cm/sec MV E/A: 1.2 MVA(P1/2t): 4.4 cm2 MV dec slope: 627.9 cm/sec2 MV dec time: 0.18 sec PA V2 max: PI end-d lawrence: TR max lawrence: 93.3 cm/sec 138.5 cm/sec 230.8 cm/sec PA max PG: TR max P.5 mmHg 21.3 mmHg Left Ventricle The left ventricle is grossly normal size. There is borderline concentric left ventricular hypertrophy. The left ventricular ejection fraction is normal. Doppler measurements suggest impaired left ventricular relaxation, which is associated with grade I/IV or mild diastolic dysfunction. Wall motion cannot be accurately commented on, but no definite regional wall motion abnormalities noted. Right Ventricle The right ventricle is mild to moderately dilated. There is normal right ventricular wall thickness. The right ventricular systolic function is normal. Atria The right atrium is normal in size. The left atrial size is normal. Interarterial septum not well visualized and not well dopplered. Cannot comment on ASD/PFO presence. Mitral Valve The mitral valve is grossly normal. There is no mitral valve stenosis. There is a trace amount of mitral regurgitation. Aortic Valve The aortic valve is grossly normal. There is no aortic valve stenosis. No aortic regurgitation is present. Tricuspid Valve The tricuspid valve is not well visualized, but is grossly normal. There is no tricuspid stenosis. There is a trace or physiologic amount of tricuspid regurgitation. Tricuspid regurgitation jet envelope not well defined to measure RV systolic pressure accurately. Pulmonic Valve The pulmonic valve is not well visualized. Great Vessels The aortic root is not well visualized but is probably normal size. The inferior vena cava was not well visualized. Effusions There is no pericardial effusion. : JARED ALMANZA Basilia Merida
[2017-02-16] MEDS: MONTELUKAST SODIUM 10 MG TABLET PO SCH (21:06)
[2017-02-17] MEDS: GABAPENTIN 300 MG CAPSULE PO SCH ×3 (01:51→17:12)
[2017-02-17] MEDS: LORAZEPAM INJ 2 MG/1 ML VIAL IV PRN ×5 (01:51→17:13)
[2017-02-17] MEDS: LEVALBUTEROL HCL NEB 1.25 MG/3 ML AMPUL NEB SCH ×3 (02:10→16:04)
[2017-02-17] MEDS: METHYLPREDNISOLONE INJ 125 MG/2 ML SDV IV SCH ×3 (05:03→21:47)
[2017-02-17] MEDS: IMIPENEM/CILASTATIN SODIUM 500 MG in NORMAL SALINE 100 ML IV SCH ×4 (05:06→23:38)
[2017-02-17 05:09] LABS: HEMATOCRIT 30.6 % (37.9-51.0); HEMOGLOBIN 9.7 g/dL (13.5-17.0); HGB HCT DIFFERENCE -1.5; MEAN CORPUSCULAR HEMOGLOBIN 24.7 pg (27.0-33.4); MEAN CORPUSCULAR HGB CONC 31.7 g/dL (32.0-36.0); MEAN CORPUSCULAR VOLUME 78 fl (80-97); RED BLOOD COUNT 3.92 10^6/uL (4.35-5.55); RED CELL DISTRIBUTION WIDTH 21.5 % (11.5-14.0); WHITE BLOOD COUNT 13.6 10^3/uL (4.0-10.5)
[2017-02-17] MEDS: [UNRECOGNIZED DRUG - OTHER] PO PRN ×4 (05:10→23:45)
[2017-02-17 05:34] LABS: ANION GAP 8 (5-19); BLOOD UREA NITROGEN 8 mg/dL (7-20); CALCIUM 9.1 mg/dL (8.4-10.2); CARBON DIOXIDE 33 mmol/L (22-30); CHLORIDE 93 mmol/L (98-107); CREATININE RESULT 0.53 mg/dL (0.52-1.25); GLUCOSE 141 mg/dL (75-110); MAGNESIUM 1.6 mg/dL (1.6-2.3); POTASSIUM 3.8 mmol/L (3.6-5.0); SODIUM 134.3 mmol/L (137-145)
[2017-02-17] MEDS ORDERED: (PENDING PHARMACY ID) (Alprazolam [Alprazolam] 1 MG) PO PRN (07:30)
[2017-02-17] MEDS ORDERED: ALPRAZOLAM 0.5 MG TABLET PO PRN (07:40)
[2017-02-17] MEDS ORDERED: FUROSEMIDE INJ/PF 20 MG/2 ML SDV IV ONE (08:00)
[2017-02-17] MEDS: MAGNESIUM SULFATE/D5W 100 ML IV SCH ×2 (08:29→09:42)
[2017-02-17 08:50] LABS: ARTERIAL BLOOD BASE EXCESS 9.7 mmol/L; ARTERIAL BLOOD O2 SATURATION 98.5 % (94-98)
[2017-02-17] MEDS: FLUTICASONE NASAL SPRAY 50 MCG/SPRY 120 SPRAY/16 GM NASL SCH ×2 (09:03→21:47)
[2017-02-17] MEDS: OMEGA-3 ACID ETHYL ESTERS 1 GM CAPSULE PO SCH (09:03)
[2017-02-17] MEDS: LANSOPRAZOLE 30 MG TAB.RAP.DR PO SCH (09:03)
[2017-02-17] MEDS: BUDESONIDE/FORMOTEROL 160-4.5 MCG 60 PUFF/6 GM MDI IH SCH ×2 (09:03→21:47)
[2017-02-17] MEDS: MAGNESIUM OXIDE 400 MG TABLET PO SCH ×3 (09:03→17:12)
[2017-02-17] MEDS: GUAIFENESIN 600 MG TABLET.SA PO SCH ×2 (09:03→21:48)
[2017-02-17] MEDS: LACTOBACILLUS ACIDOPHILUS 250 MG TAB PO SCH ×2 (09:04→17:11)
[2017-02-17] MEDS: CITALOPRAM HYDROBROMIDE 20 MG TABLET PO SCH (09:04)
[2017-02-17] MEDS ORDERED: HALOPERIDOL LACTATE INJ 5 MG/1 ML VIAL IV PRN (11:13)
[2017-02-17] MEDS ORDERED: PHARMACY COMMUNICATION ORDER MC NR (11:30)
[2017-02-17] MEDS ORDERED: FUROSEMIDE INJ/PF 40 MG/4 ML SDV IV ONE (11:30)
--- NOTE | 2017-02-17 11:53 | RADIOLOGY REPORT (SQ) ---
EXAM DESCRIPTION: CHEST SINGLE VIEW COMPLETED DATE/TIME: 02/17/2017 11:39 am REASON FOR STUDY: pna COMPARISON: 02/16/2017 NUMBER OF VIEWS: One view. TECHNIQUE: Single frontal radiographic image of the chest acquired. LIMITATIONS: None. FINDINGS: LUNGS AND PLEURA: Improved aeration in both lungs with residual interstitial pattern and r esidual blunting of the right costophrenic angle. MEDIASTINUM AND HEART: Stable heart size and mediastinal structures. BONY STRUCTURES: No acute findings. HARDWARE: None. OTHER: No other significant finding. IMPRESSION: Improving pneumonia. TECHNICAL DOCUMENTATION: JOB ID: [id number]
[2017-02-17] MEDS ORDERED: LISINOPRIL 10 MG TABLET PO ONE (12:30)
[2017-02-17] MEDS ORDERED: FUROSEMIDE 20 MG TABLET PO ONE (12:30)
[2017-02-17] MEDS ORDERED: LIDOCAINE 2% URO-JET 5 ML KIT MM ONE (12:30)
[2017-02-17 13:49] LABS: APPEARANCE,URINE CLEAR; BILIRUBIN,URINE NEGATIVE (NEGATIVE); GLUCOSE, URINE 50 mg/dL (NEGATIVE); KETONES,URINE TRACE mg/dL (NEGATIVE); LEUKOCYTE ESTERASE,URINE NEGATIVE (NEGATIVE); NITRITE,URINE NEGATIVE (NEGATIVE); PROTEIN,URINE NEGATIVE (NEGATIVE); URINE SPECIFIC GRAVITY 1.006; UROBILINOGEN,URINE NEGATIVE mg/dL (<2.0)
[2017-02-17 13:52] LABS: ADD HIVPANEL? NO; HIV (1 AND 2) ANTIBODY NEGATIVE (NEGATIVE)
--- NOTE | 2017-02-17 13:57 | RADIOLOGY REPORT (SQ) ---
EXAM DESCRIPTION: CTA CHEST COMPLETED DATE/TIME: 02/17/2017 1:27 pm REASON FOR STUDY: hypoxia, tachycardia COMPARISON: Chest x-ray dated 02/17/2017 TECHNIQUE: CT scan of the chest performed using helical scanning technique with dynamic intravenous contrast injection. Images reviewed with lung, soft tissue and bone windows. Reconstructed coronal and sagittal MPR images reviewed. Additional 3 dimensional post-processing performed to develop Maximal Intensity Projection images (NC P). All images stored on PACS. All CT scanners at this facility use dose modulation, iterative reconstruction, and/or weight based d osing when appropriate to reduce radiation dose to as low as reasonably achievable (ALARA). [facility]: Dose Right [facility]: CareDose [facility]: Dose Right [facility]: Teradose 4D [facility]: [employer] CONTRAST TYPE AND DOSE: 63 mL Isovue 370 RENAL FUNCTION: Creatinine 0.53 RADIATION DOSE: 25.29 mGy. LIMITATIONS: None. FINDINGS: LUNGS AND PLEURA: Confluent airspace densities are identified in the upper lung menjivar lef t greater than right with patchy airspace densities in the remainder of the lungs. This could repres ent pulmonary edema or pneumonic infiltrates. Small bilateral pleural effusions are identified. AORTA AND GREAT VESSELS: There is some dilatation of the ascending thoracic aorta measuring 4.3 cm in diameters consistent with an aneurysm. There is mild ectasia of the remaining thoracic aorta. No d issection is seen. HEART: No pericardial effusion. PULMONARY ARTERIES: No emboli visualized in the main pulmonary arteries or the segmental branches. HILAR AND MEDIASTINAL STRUCTURES: No identified masses or abnormal nodes. HARDWARE: None in the chest. UPPER ABDOMEN: No significant findings. Limited exam. THYROID AND OTHER SOFT TISSUES: No masses. No adenopathy. BONES: No acute or significant finding. 3D MIPS: Confirm above findings. OTHER: Elevation of the left hemidiaphragm is seen. IMPRESSION: No evidence for pulmonary embolic disease. Dilatation of the ascending thoracic aorta m easuring 4.3 cm in diameters consistent with an aneurysm. Confluent airspace densities in the upper lung menjivar left greater than right with patchy airspace densities in remainder the lung menjivar which could represent pulmonary edema or pneumonic infiltrates. Small bilateral pleural effusions are luna ntified. Other findings as noted above TECHNICAL DOCUMENTATION: JOB ID: [id number] Quality ID # [id number]: Final reports with documentation of one or more dose reduction techniques (e.g., Au tomated exposure control, adjustment of the mA and/or kV according to patient size, use of iterative reconstruction technique) 2010 [employer]- All Rights Reserved
[2017-02-17] MEDS ORDERED: LOPERAMIDE HCL 2 MG CAPSULE PO PRN (16:39)
[2017-02-17] MEDS ORDERED: LOPERAMIDE HCL 2 MG CAPSULE PO ONE (16:39)
--- NOTE | 2017-02-17 16:46 | PDOC PROGRESS REPORT ---
Subjective Progress Note for:: 02/17/17 Subjective:: Patient continues to be quite impulsive. Bed alarm in place. Patient denies chest pain, abdominal pain, constipation, nausea, vomiting, tremors, fever, chills. Patient reports he was sent home from [facility] on an antibiotic which he did not continue. He reports drinking between 12-24 beers or more per day. He does complain of diarrhea and polyuria. Physical Exam Vital Signs: Temp Pulse Resp BP Pulse Ox 98.5 F 91 34 H 139/83 H 97 02/16/17 23:08 02/17/17 02:10 02/17/17 02:10 02/16/17 23:08 02/17/17 02:10 Intake & Output 02/16/17 02/17/17 02/18/17 06:59 06:59 06:59 Intake Total 3543 2670 Output Total 175 200 Balance 3368 2470 Weight 72.1 kg Exam: General: Awake alert and oriented x3, mild respiratory distress, tachypnea, appears older than stated age HEENT: AT/NC, PERRL,EOMI, oropharynx is moist, pink, no scleral icterus, no conjunctival injection Neck: No JVD, trachea midline Chest: Bilateral rhonchi CV: Regular rate and rhythm, normal S1 and S2, no rub or gallop; 3/6 sm lusb Abdomen: Soft, nontender to palpation, nondistended, active bowel sounds; no rebound, rigidity, or guarding Extremities: No cyanosis, clubbing or edema Neuro: Cranial nerves II through XII are grossly intact without focal deficits; mildly tremulous Psych: unpleasant mood and affect Results Laboratory Results: 02/17/17 04:50 02/17/17 04:50 02/16/17 02/17/17 02/17/17 13:21 04:50 04:50 WBC 13.6 H RBC 3.92 L Hgb 9.7 L Hct 30.6 L MCV 78 L MCH 24.7 L MCHC 31.7 L RDW 21.5 H Plt Count 166 Carbonic Acid 1.19 HCO3/H2CO3 Ratio 24:1 ABG pH 7.49 H ABG pCO2 39.4 ABG pO2 85.4 ABG HCO3 29.4 H ABG O2 Saturation 97.1 ABG Base Excess 5.7 FiO2 100% Sodium 134.3 L Potassium 3.8 Chloride 93 L Carbon Dioxide 33 H Anion Gap 8 BUN 8 Creatinine 0.53 Est GFR ( Amer) > 60 Est GFR (Non-Af Amer) > 60 Glucose 141 H Calcium 9.1 Magnesium 1.6 02/14/17 17:40 Clean Catch Midstream Urine Culture - Final NO GROWTH 2 DAYS 02/16/17 04:23 NT-Pro-B Natriuret Pep 2940 H Impressions: Chest X-Ray 02/16/17 06:00 IMPRESSION: 1. Cardiomegaly with CHF. There is a small right pleural effusion. 2. A pneumonia cannot be ruled out and either lung. Assessment & Plan - Diagnosis (1) Acute on chronic diastolic (congestive) heart failure Is this a current diagnosis for this admission?: YesPlan: Patient has acute on chronic diastolic congestive heart failure. Echocardiogram performed reveals a "normal" EF and grade 1 diastolic dysfunction. Patient does have some mild dilation of his right ventricle. Initiate patient on lisinopril 10 mg p.o. twice daily and Lasix. (2) HCAP (healthcare-associated pneumonia) Is this a current diagnosis for this admission?: YesPlan: The patient meets technical criteria for healthcare associated pneumonia, suspect that this was likely failure of compliance with outpatient therapy. Will consider transitioning patient to fluoroquinolone. Obtain outside records from [facility] patient was recently seen and treated there for pneumonia. Concern for gram-negative pneumonia in light of patient's alcoholism. Continue with current antibiotic therapy. (3) Alcohol dependence with withdrawal with complication Is this a current diagnosis for this admission?: YesPlan: Patient has significant alcohol dependence and is doing well with prn bourbon. Patient reports no desire to stop drinking. Continue as needed Ativan, thiamine , folic acid. (4) COPD (chronic obstructive pulmonary disease) Qualifiers: COPD type: COPD with acute lower respiratory infection Qualified Code(s): J44.0 - Chronic obstructive pulmonary disease with acute lower respiratory infection Is this a current diagnosis for this admission?: YesPlan: Continue patient withSolu-Medrol. Scheduled nebulized treatments. Pending sputum study. (5) Hiatal hernia with GERD Is this a current diagnosis for this admission?: YesPlan: Patient has a significant hiatal hernia. Will continue PPI and add Carafate twice daily. (6) Hypoxia Is this a current diagnosis for this admission?: YesPlan: Patient continues to have profound hypoxemic respiratory failure requiring nonrebreather. Will obtain an ABG as well as a CTA patient's d-dimer is positive. (7) Opiate dependence, continuous Is this a current diagnosis for this admission?: YesPlan: Continue low-dose oxycodone. Concern for patient receiving both benzodiazepines and opiates in the setting of chronic alcoholism as an outpatient. Have advised him to discuss this with his primary care physician. (8) Anemia Qualifiers: Anemia type: unspecified type Qualified Code(s): D64.9 - Anemia, unspecified Is this a current diagnosis for this admission?: YesPlan: We will check anemia panel. (9) Hypomagnesemia Is this a current diagnosis for this admission?: YesPlan: Replete and recheck likely secondary to alcoholism. (10) Tobacco abuse Is this a current diagnosis for this admission?: YesPlan: Patient has been encouraged to stop. Neck nicotine patch as needed - Time Time Spent with patient: 35 or more minutes Medications reviewed and adjusted accordingly: Yes - Inpatient Certification Based on my medical assessment, after consideration of the patient's comorbidities, presenting symptoms, or acuity I expect that the services needed warrant INPATIENT care.: Yes I certify that my determination is in accordance with my understanding of Medicare's requirements for reasonable and necessary INPATIENT services [42 CFR 412.3e].: Yes Medical Necessity: Need for IV Antibiotics, Risk of Complication if Not Cared For in Hospital Post Hospital Care: D/C Flour Blender Documentation
[2017-02-17] MEDS: SUCRALFATE SUSP 1 GM/10 ML UDCUP PO SCH (17:10)
--- NOTE | 2017-02-17 19:25 | EKG REPORT ---
SEVERITY:- ABNORMAL ECG - SINUS TACHYCARDIA LEFT ATRIAL ABNORMALITY LEFT AXIS DEVIATION PROLONGED QT INTERVAL : Confirmed by: Mitchell Post MD 17-Feb-2017 19:24:49
[2017-02-17] MEDS: DOXYCYCLINE HYCLATE 100 MG TABLET PO SCH (20:43)
[2017-02-17] MEDS: MONTELUKAST SODIUM 10 MG TABLET PO SCH (21:48)
[2017-02-17] MEDS: ALPRAZOLAM 0.5 MG TABLET PO SCH (21:48)
[2017-02-17] MEDS: LISINOPRIL 10 MG TABLET PO SCH (21:48)
[2017-02-18] MEDS: LEVALBUTEROL HCL NEB 1.25 MG/3 ML AMPUL NEB SCH ×4 (00:18→23:28)
[2017-02-18] MEDS: GABAPENTIN 300 MG CAPSULE PO SCH ×3 (02:27→17:10)
[2017-02-18] MEDS: ALPRAZOLAM 0.5 MG TABLET PO SCH ×3 (05:26→22:15)
[2017-02-18] MEDS: IMIPENEM/CILASTATIN SODIUM 500 MG in NORMAL SALINE 100 ML IV SCH ×3 (05:27→17:09)
[2017-02-18] MEDS: METHYLPREDNISOLONE INJ 125 MG/2 ML SDV IV SCH ×3 (05:27→22:15)
[2017-02-18] MEDS: DOXYCYCLINE HYCLATE 100 MG TABLET PO SCH ×2 (08:34→20:32)
[2017-02-18] MEDS: [UNRECOGNIZED DRUG - OTHER] PO PRN ×2 (08:38→22:31)
[2017-02-18] MEDS: SUCRALFATE SUSP 1 GM/10 ML UDCUP PO SCH ×2 (09:25→17:10)
[2017-02-18] MEDS: GUAIFENESIN 600 MG TABLET.SA PO SCH ×2 (09:26→22:15)
[2017-02-18] MEDS: LACTOBACILLUS ACIDOPHILUS 250 MG TAB PO SCH ×2 (09:26→17:10)
[2017-02-18] MEDS: MAGNESIUM OXIDE 400 MG TABLET PO SCH ×3 (09:26→17:10)
[2017-02-18] MEDS: OMEGA-3 ACID ETHYL ESTERS 1 GM CAPSULE PO SCH (09:26)
[2017-02-18] MEDS: LANSOPRAZOLE 30 MG TAB.RAP.DR PO SCH (09:26)
[2017-02-18] MEDS: LISINOPRIL 10 MG TABLET PO SCH ×2 (09:26→22:19)
[2017-02-18] MEDS: BUDESONIDE/FORMOTEROL 160-4.5 MCG 60 PUFF/6 GM MDI IH SCH ×2 (09:27→22:20)
[2017-02-18] MEDS: CITALOPRAM HYDROBROMIDE 20 MG TABLET PO SCH (09:27)
[2017-02-18] MEDS: FLUTICASONE NASAL SPRAY 50 MCG/SPRY 120 SPRAY/16 GM NASL SCH ×2 (09:27→22:20)
[2017-02-18] MEDS: FUROSEMIDE 20 MG TABLET PO SCH (09:27)
[2017-02-18 09:39] LABS: ABSOLUTE LYMPHOCYTES (AUTO) 0.5 10^3/uL (0.5-4.7); ABSOLUTE MONOCYTES (AUTO) 0.8 10^3/uL (0.1-1.4); ABSOLUTE NEUT (AUTO) 5.8 10^3/uL (1.7-8.2); BASOPHILS % (AUTO) 0.2 % (0-2); HEMATOCRIT 32.1 % (37.9-51.0); HEMOGLOBIN 10.3 g/dL (13.5-17.0); HGB HCT DIFFERENCE -1.2; LYMPHOCYTES % (AUTO) 6.5 % (13-45); MEAN CORPUSCULAR HEMOGLOBIN 25.1 pg (27.0-33.4); MEAN CORPUSCULAR HGB CONC 32.1 g/dL (32.0-36.0); MEAN CORPUSCULAR VOLUME 78 fl (80-97); MONOCYTES % (AUTO) 11.9 % (3-13); RED CELL DISTRIBUTION WIDTH 21.4 % (11.5-14.0); SEGMENTED NEUTROPHILS % (AUTO) 81.4 % (42-78); WHITE BLOOD COUNT 7.1 10^3/uL (4.0-10.5)
[2017-02-18 09:52] LABS: ANION GAP 10 (5-19); BLOOD UREA NITROGEN 11 mg/dL (7-20); CALCIUM 8.9 mg/dL (8.4-10.2); CARBON DIOXIDE 35 mmol/L (22-30); CHLORIDE 91 mmol/L (98-107); CREATININE RESULT 0.54 mg/dL (0.52-1.25); GLUCOSE 130 mg/dL (75-110); MAGNESIUM 1.9 mg/dL (1.6-2.3); POTASSIUM 3.4 mmol/L (3.6-5.0); SODIUM 135.6 mmol/L (137-145)
[2017-02-18] MEDS ORDERED: LORAZEPAM INJ 2 MG/1 ML VIAL IV PRN (21:15)
--- NOTE | 2017-02-18 21:16 | PDOC PROGRESS REPORT ---
Subjective Progress Note for:: 02/18/17 Subjective:: Patient is improving. Patient denies chest pain, abdominal pain, constipation, nausea, vomiting, tremors, fever, chills. Reviewed patient record from [facility] from September of this year which revealed the patient had possible pneumonia with parapneumonic effusion which was drained and found to be a bloody effusion. Physical Exam Vital Signs: Temp Pulse Resp BP Pulse Ox 97.7 F 58 L 24 H 122/76 99 02/18/17 05:14 02/18/17 07:00 02/18/17 05:14 02/18/17 05:14 02/18/17 00:25 Intake & Output 02/17/17 02/18/17 02/19/17 06:59 06:59 06:59 Intake Total 2670 1895 Output Total 200 Balance 2470 1895 Exam: General: Resting comfortably, but arousable, no acute respiratory distress, appears older than stated age HEENT: AT/NC, PERRL,EOMI, oropharynx is moist, pink, no scleral icterus, no conjunctival injection Neck: No JVD, trachea midline Chest: Occasional bilateral rhonchi CV: Regular rate and rhythm, normal S1 and S2, no rub or gallop; 3/6 sm lusb Abdomen: Soft, nontender to palpation, nondistended, active bowel sounds; no rebound, rigidity, or guarding Extremities: No cyanosis, clubbing or edema Neuro: Cranial nerves II through XII are grossly intact without focal deficits; mildly tremulous Psych:normal mood and affect Results Laboratory Results: 02/17/17 04:50 02/17/17 04:50 02/17/17 02/17/17 02/17/17 08:35 13:03 13:03 Carbonic Acid 1.38 H HCO3/H2CO3 Ratio 24:1 ABG pH 7.49 H ABG pCO2 45.9 H ABG pO2 116.6 H ABG HCO3 34.1 H ABG O2 Saturation 98.5 H ABG Base Excess 9.7 FiO2 12 LITERS Urine Color Urine Appearance Urine pH Ur Specific [place] Urine Protein Urine Glucose (UA) Urine Ketones Urine Blood Urine Nitrite Ur Leukocyte Esterase Urine WBC (Auto) Stool Occult Blood NEGATIVE Stool for White Cells NO WBCs SEEN 02/17/17 13:04 Carbonic Acid HCO3/H2CO3 Ratio ABG pH ABG pCO2 ABG pO2 ABG HCO3 ABG O2 Saturation ABG Base Excess FiO2 Urine Color STRAW Urine Appearance CLEAR Urine pH 7.0 Ur Specific [place] 1.006 Urine Protein NEGATIVE Urine Glucose (UA) 50 H Urine Ketones TRACE H Urine Blood NEGATIVE Urine Nitrite NEGATIVE Ur Leukocyte Esterase NEGATIVE Urine WBC (Auto) 0 Stool Occult Blood Stool for White Cells 02/16/17 02/17/17 04:23 04:50 NT-Pro-B Natriuret Pep 2940 H 4030 H Impressions: Chest X-Ray 02/17/17 00:00 IMPRESSION: Improving pneumonia. Chest/Abdomen CTA 02/17/17 00:00 IMPRESSION: No evidence for pulmonary embolic disease. Dilatation of the ascending thoracic aorta measuring 4.3 cm in diameters consistent with an aneurysm. Confluent airspace densities in the upper lung menjivar left greater than right with patchy airspace densities in remainder the lung menjivar which could represent pulmonary edema or pneumonic infiltrates. Small bilateral pleural effusions are identified. Other findings as noted above Assessment & Plan - Diagnosis (1) Acute on chronic diastolic (congestive) heart failure Is this a current diagnosis for this admission?: YesPlan: Patient has acute on chronic diastolic congestive heart failure. Echocardiogram performed reveals a "normal" EF and grade 1 diastolic dysfunction. Patient does have some mild dilation of his right ventricle. Patient on lisinopril 10 mg p.o. twice daily and Lasix. (2) HCAP (healthcare-associated pneumonia) Is this a current diagnosis for this admission?: YesPlan: Will consider transitioning patient to fluoroquinolone.Currently no cultures are positive. Concern for gram-negative pneumonia in light of patient's alcoholism. Continue with current antibiotic therapy. (3) Alcohol dependence with withdrawal with complication Is this a current diagnosis for this admission?: YesPlan: Patient has significant alcohol dependence and is doing well with prn bourbon. Patient reports no desire to stop drinking. Continue as needed Ativan, thiamine , folic acid. (4) COPD (chronic obstructive pulmonary disease) Qualifiers: COPD type: COPD with acute lower respiratory infection Qualified Code(s): J44.0 - Chronic obstructive pulmonary disease with acute lower respiratory infection Is this a current diagnosis for this admission?: YesPlan: Continue patient withSolu-Medrol. Scheduled nebulized treatments. Pending sputum study. (5) Hiatal hernia with GERD Is this a current diagnosis for this admission?: Yes (6) Hypoxia Is this a current diagnosis for this admission?: Yes (7) Opiate dependence, continuous Is this a current diagnosis for this admission?: Yes (8) Anemia Qualifiers: Anemia type: unspecified type Qualified Code(s): D64.9 - Anemia, unspecified Is this a current diagnosis for this admission?: Yes (9) Hypomagnesemia Is this a current diagnosis for this admission?: Yes (10) Tobacco abuse Is this a current diagnosis for this admission?: Yes (11) Thoracic aortic aneurysm without rupture Is this a current diagnosis for this admission?: Yes - Time Time Spent with patient: 25-34 minutes Medications reviewed and adjusted accordingly: Yes
[2017-02-18] MEDS: MONTELUKAST SODIUM 10 MG TABLET PO SCH (22:16)
[2017-02-19] MEDS: IMIPENEM/CILASTATIN SODIUM 500 MG in NORMAL SALINE 100 ML IV SCH ×2 (00:18→05:31)
[2017-02-19] MEDS: GABAPENTIN 300 MG CAPSULE PO SCH ×3 (01:40→17:01)
[2017-02-19] MEDS: ALPRAZOLAM 0.5 MG TABLET PO SCH ×3 (05:31→23:21)
[2017-02-19] MEDS: METHYLPREDNISOLONE INJ 125 MG/2 ML SDV IV SCH ×2 (05:31→14:24)
[2017-02-19 06:08] LABS: ABSOLUTE LYMPHOCYTES (AUTO) 0.7 10^3/uL (0.5-4.7); ABSOLUTE MONOCYTES (AUTO) 1.5 10^3/uL (0.1-1.4); ABSOLUTE NEUT (AUTO) 6.3 10^3/uL (1.7-8.2); BASOPHILS % (AUTO) 0.2 % (0-2); HEMATOCRIT 32.6 % (37.9-51.0); HEMOGLOBIN 10.2 g/dL (13.5-17.0); LYMPHOCYTES % (AUTO) 8.6 % (13-45); MEAN CORPUSCULAR HEMOGLOBIN 24.6 pg (27.0-33.4); MEAN CORPUSCULAR HGB CONC 31.2 g/dL (32.0-36.0); MEAN CORPUSCULAR VOLUME 79 fl (80-97); MONOCYTES % (AUTO) 17.2 % (3-13); RED BLOOD COUNT 4.14 10^6/uL (4.35-5.55); RED CELL DISTRIBUTION WIDTH 21.2 % (11.5-14.0); WHITE BLOOD COUNT 8.5 10^3/uL (4.0-10.5)
[2017-02-19 07:03] LABS: ANION GAP 11 (5-19); BLOOD UREA NITROGEN 14 mg/dL (7-20); CALCIUM 9.2 mg/dL (8.4-10.2); CARBON DIOXIDE 34 mmol/L (22-30); CHLORIDE 92 mmol/L (98-107); CREATININE RESULT 0.51 mg/dL (0.52-1.25); GLUCOSE 130 mg/dL (75-110); MAGNESIUM 1.6 mg/dL (1.6-2.3); POTASSIUM 3.8 mmol/L (3.6-5.0); SODIUM 137.3 mmol/L (137-145)
[2017-02-19] MEDS: [UNRECOGNIZED DRUG - OTHER] PO PRN ×3 (08:00→16:59)
[2017-02-19] MEDS: DOXYCYCLINE HYCLATE 100 MG TABLET PO SCH ×2 (08:16→19:39)
[2017-02-19] MEDS: LEVALBUTEROL HCL NEB 1.25 MG/3 ML AMPUL NEB SCH ×2 (08:20→16:37)
[2017-02-19] MEDS ORDERED: [UNRECOGNIZED DRUG - OTHER] PO PRN (09:02)
[2017-02-19] MEDS: LISINOPRIL 10 MG TABLET PO SCH ×2 (09:05→23:24)
[2017-02-19] MEDS: CITALOPRAM HYDROBROMIDE 20 MG TABLET PO SCH (09:05)
[2017-02-19] MEDS: OMEGA-3 ACID ETHYL ESTERS 1 GM CAPSULE PO SCH (09:05)
[2017-02-19] MEDS: MAGNESIUM OXIDE 400 MG TABLET PO SCH ×3 (09:06→17:01)
[2017-02-19] MEDS: LACTOBACILLUS ACIDOPHILUS 250 MG TAB PO SCH ×2 (09:06→17:01)
[2017-02-19] MEDS: LANSOPRAZOLE 30 MG TAB.RAP.DR PO SCH (09:07)
[2017-02-19] MEDS: FUROSEMIDE 20 MG TABLET PO SCH (09:07)
[2017-02-19] MEDS: GUAIFENESIN 600 MG TABLET.SA PO SCH ×2 (09:07→23:20)
[2017-02-19] MEDS: SUCRALFATE SUSP 1 GM/10 ML UDCUP PO SCH ×2 (09:08→17:02)
[2017-02-19] MEDS: MAGNESIUM SULFATE/D5W 1 GM/100 ML RTUPB IV SCH ×2 (09:08→10:21)
[2017-02-19] MEDS: BUDESONIDE/FORMOTEROL 160-4.5 MCG 60 PUFF/6 GM MDI IH SCH ×2 (09:09→23:20)
[2017-02-19] MEDS: FLUTICASONE NASAL SPRAY 50 MCG/SPRY 120 SPRAY/16 GM NASL SCH ×2 (09:09→23:20)
--- NOTE | 2017-02-19 19:03 | PDOC PROGRESS REPORT ---
Subjective Progress Note for:: 02/19/17 Subjective:: Patient is improving. Patient denies chest pain, abdominal pain, constipation, nausea, vomiting, tremors, fever, chills. Physical Exam Vital Signs: Temp Pulse Resp BP Pulse Ox 97.9 F 56 L 20 149/90 H 98 02/19/17 04:17 02/19/17 04:17 02/19/17 04:17 02/19/17 04:17 02/19/17 04:17 Intake & Output 02/18/17 02/19/17 02/20/17 06:59 06:59 06:59 Intake Total 1895 1250 Output Total 241 Balance 1895 1009 Weight 68 kg Exam: General: Awake, alert, oriented 3, no acute respiratory distress,appears older than stated age HEENT: AT/NC, PERRL,EOMI, oropharynx is moist, pink, no scleral icterus, no conjunctival injection Neck: No JVD, trachea midline Chest: Occasional rhonchi CV: Regular rate and rhythm, normal S1 and S2, no rub or gallop; 3/6 sm lusb Abdomen: Soft, nontender to palpation, nondistended, active bowel sounds; no rebound, rigidity, or guarding Extremities: No cyanosis, clubbing or edema Neuro: Cranial nerves II through XII are grossly intact without focal deficits; mildly tremulous Psych:normal mood and affect Results Laboratory Results: 02/19/17 05:51 02/19/17 05:51 02/18/17 02/18/17 02/19/17 08:50 08:56 05:51 WBC 7.1 8.5 RBC 4.10 L 4.14 L Hgb 10.3 L 10.2 L Hct 32.1 L 32.6 L MCV 78 L 79 L MCH 25.1 L 24.6 L MCHC 32.1 31.2 L RDW 21.4 H 21.2 H Plt Count 210 216 Seg Neutrophils % 81.4 H 74.0 Lymphocytes % 6.5 L 8.6 L Monocytes % 11.9 17.2 H Eosinophils % 0.0 0.0 Basophils % 0.2 0.2 Absolute Neutrophils 5.8 6.3 Absolute Lymphocytes 0.5 0.7 Absolute Monocytes 0.8 1.5 H Absolute Eosinophils 0.0 0.0 Absolute Basophils 0.0 0.0 Sodium 135.6 L Potassium 3.4 L Chloride 91 L Carbon Dioxide 35 H Anion Gap 10 BUN 11 Creatinine 0.54 Est GFR ( Amer) > 60 Est GFR (Non-Af Amer) > 60 Glucose 130 H Calcium 8.9 Magnesium 1.9 02/19/17 05:51 WBC RBC Hgb Hct MCV MCH MCHC RDW Plt Count Seg Neutrophils % Lymphocytes % Monocytes % Eosinophils % Basophils % Absolute Neutrophils Absolute Lymphocytes Absolute Monocytes Absolute Eosinophils Absolute Basophils Sodium 137.3 Potassium 3.8 Chloride 92 L Carbon Dioxide 34 H Anion Gap 11 BUN 14 Creatinine 0.51 L Est GFR ( Amer) > 60 Est GFR (Non-Af Amer) > 60 Glucose 130 H Calcium 9.2 Magnesium 1.6 02/16/17 02/17/17 04:23 04:50 NT-Pro-B Natriuret Pep 2940 H 4030 H Impressions: Chest X-Ray 02/17/17 00:00 IMPRESSION: Improving pneumonia. Chest/Abdomen CTA 02/17/17 00:00 IMPRESSION: No evidence for pulmonary embolic disease. Dilatation of the ascending thoracic aorta measuring 4.3 cm in diameters consistent with an aneurysm. Confluent airspace densities in the upper lung menjivar left greater than right with patchy airspace densities in remainder the lung menjivar which could represent pulmonary edema or pneumonic infiltrates. Small bilateral pleural effusions are identified. Other findings as noted above Assessment & Plan - Diagnosis (1) Acute on chronic diastolic (congestive) heart failure Is this a current diagnosis for this admission?: YesPlan: Patient has acute on chronic diastolic congestive heart failure. Echocardiogram performed reveals a "normal" EF and grade 1 diastolic dysfunction. Patient does have some mild dilation of his right ventricle. Patient on lisinopril 10 mg p.o. twice daily and Lasix. (2) HCAP (healthcare-associated pneumonia) Is this a current diagnosis for this admission?: YesPlan: Transition patient to doxycycline. Not appear to meet healthcare associated pneumonia criteria as patient's hospitalization was in September of this year. This is more than 4 months ago. Currently no cultures are positive. Concern for gram-negative pneumonia in light of patient's alcoholism. (3) Alcohol dependence with withdrawal with complication Is this a current diagnosis for this admission?: YesPlan: Patient has significant alcohol dependence and is doing well with prn bourbon. Patient reports no desire to stop drinking. Continue as needed Ativan, thiamine , folic acid. (4) COPD (chronic obstructive pulmonary disease) Qualifiers: COPD type: COPD with acute lower respiratory infection Qualified Code(s): J44.0 - Chronic obstructive pulmonary disease with acute lower respiratory infection Is this a current diagnosis for this admission?: YesPlan: decrease withSolu-Medrol. Scheduled nebulized treatments. Pending sputum study. (5) Hiatal hernia with GERD Is this a current diagnosis for this admission?: YesPlan: Patient has a significant hiatal hernia. Will continue PPI and add Carafate twice daily. (6) Hypoxia Is this a current diagnosis for this admission?: Yes (7) Opiate dependence, continuous Is this a current diagnosis for this admission?: YesPlan: Continue low-dose oxycodone. Concern for patient receiving both benzodiazepines and opiates in the setting of chronic alcoholism as an outpatient. Have advised him to discuss this with his primary care physician. (8) Anemia Qualifiers: Anemia type: unspecified type Qualified Code(s): D64.9 - Anemia, unspecified Is this a current diagnosis for this admission?: Yes (9) Hypomagnesemia Is this a current diagnosis for this admission?: Yes (10) Tobacco abuse Is this a current diagnosis for this admission?: Yes (11) Thoracic aortic aneurysm without rupture Is this a current diagnosis for this admission?: YesPlan: Patient has been advised of this and that he will need to have follow-up CT. He has been advised to stop smoking. - Time Time Spent with patient: 25-34 minutes Medications reviewed and adjusted accordingly: Yes Anticipated discharge: Home Within: within 48 hours - Inpatient Certification Based on my medical assessment, after consideration of the patient's comorbidities, presenting symptoms, or acuity I expect that the services needed warrant INPATIENT care.: Yes I certify that my determination is in accordance with my understanding of Medicare's requirements for reasonable and necessary INPATIENT services [42 CFR 412.3e].: Yes Medical Necessity: Need for Nebulizer Therapy and Monitoring of Response, Need for Neurological Checks Post Hospital Care: D/C Business Continuity Specialist Documentation
[2017-02-19] MEDS ORDERED: METHYLPREDNISOLONE INJ 125 MG/2 ML SDV IV SCH (22:00)
[2017-02-19] MEDS: MONTELUKAST SODIUM 10 MG TABLET PO SCH (23:21)
[2017-02-19] MEDS: METHYLPREDNISOLONE INJ 40 MG/1 ML SDV IV SCH (23:21)
[2017-02-20] MEDS: LEVALBUTEROL HCL NEB 1.25 MG/3 ML AMPUL NEB SCH ×2 (00:12→08:06)
[2017-02-20] MEDS: GABAPENTIN 300 MG CAPSULE PO SCH ×2 (01:48→09:46)
[2017-02-20] MEDS: METHYLPREDNISOLONE INJ 40 MG/1 ML SDV IV SCH (05:15)
[2017-02-20] MEDS: ALPRAZOLAM 0.5 MG TABLET PO SCH (05:15)
[2017-02-20 06:43] LABS: ABSOLUTE LYMPHOCYTES (AUTO) 1.1 10^3/uL (0.5-4.7); ABSOLUTE MONOCYTES (AUTO) 1.6 10^3/uL (0.1-1.4); ABSOLUTE NEUT (AUTO) 7.5 10^3/uL (1.7-8.2); BASOPHILS % (AUTO) 0.1 % (0-2); HEMATOCRIT 33.4 % (37.9-51.0); HEMOGLOBIN 10.7 g/dL (13.5-17.0); HGB HCT DIFFERENCE -1.3; LYMPHOCYTES % (AUTO) 10.8 % (13-45); MEAN CORPUSCULAR VOLUME 78 fl (80-97); MONOCYTES % (AUTO) 15.4 % (3-13); RED BLOOD COUNT 4.27 10^6/uL (4.35-5.55); RED CELL DISTRIBUTION WIDTH 21.3 % (11.5-14.0); SEGMENTED NEUTROPHILS % (AUTO) 73.7 % (42-78); WHITE BLOOD COUNT 10.2 10^3/uL (4.0-10.5)
[2017-02-20 07:01] LABS: ANION GAP 9 (5-19); BLOOD UREA NITROGEN 19 mg/dL (7-20); CALCIUM 9.4 mg/dL (8.4-10.2); CARBON DIOXIDE 35 mmol/L (22-30); CHLORIDE 92 mmol/L (98-107); CREATININE RESULT 0.57 mg/dL (0.52-1.25); GLUCOSE 121 mg/dL (75-110); MAGNESIUM 1.8 mg/dL (1.6-2.3); POTASSIUM 4.4 mmol/L (3.6-5.0); SODIUM 136.2 mmol/L (137-145)
[2017-02-20] MEDS: DOXYCYCLINE HYCLATE 100 MG TABLET PO SCH (08:11)
--- NOTE | 2017-02-20 08:20 | RADIOLOGY REPORT (SQ) ---
EXAM DESCRIPTION: CHEST PA/LAT COMPLETED DATE/TIME: 02/20/2017 7:44 am REASON FOR STUDY: pna COMPARISON: 02/16/2017 EXAM PARAMETERS: NUMBER OF VIEWS: two views TECHNIQUE: Digital Frontal and Lateral radiographic views of the chest acquired. RADIATION DOSE: NA LIMITATIONS: none FINDINGS: LUNGS AND PLEURA: The previously described considerable opacification of both lungs has al most completely resolved. Again there is some blunting of the right costophrenic angle which could r epresent pleural reaction or a small effusion. MEDIASTINUM AND HILAR STRUCTURES: No masses or contour abnormalities. HEART AND VASCULAR STRUCTURES: The configuration of the heart and mediastinal structures is unchanged . BONES: No acute findings. HARDWARE: None in the chest. OTHER: Some elevation of the left hemidiaphragm is again seen. IMPRESSION: Interval improvement as noted above. TECHNICAL DOCUMENTATION: JOB ID: [id number] [email or web address]- All Rights Reserved
[2017-02-20] MEDS: MAGNESIUM OXIDE 400 MG TABLET PO SCH (09:45)
[2017-02-20] MEDS: GUAIFENESIN 600 MG TABLET.SA PO SCH (09:46)
[2017-02-20] MEDS: LISINOPRIL 10 MG TABLET PO SCH (09:46)
[2017-02-20] MEDS: FUROSEMIDE 20 MG TABLET PO SCH (09:47)
[2017-02-20] MEDS: CITALOPRAM HYDROBROMIDE 20 MG TABLET PO SCH (09:47)
[2017-02-20] MEDS: OMEGA-3 ACID ETHYL ESTERS 1 GM CAPSULE PO SCH (09:47)
[2017-02-20] MEDS: LACTOBACILLUS ACIDOPHILUS 250 MG TAB PO SCH (09:47)
[2017-02-20] MEDS: BUDESONIDE/FORMOTEROL 160-4.5 MCG 60 PUFF/6 GM MDI IH SCH (09:48)
[2017-02-20] MEDS: LANSOPRAZOLE 30 MG TAB.RAP.DR PO SCH (09:48)
[2017-02-20] MEDS: SUCRALFATE SUSP 1 GM/10 ML UDCUP PO SCH (09:48)
[2017-02-20] MEDS: FLUTICASONE NASAL SPRAY 50 MCG/SPRY 120 SPRAY/16 GM NASL SCH (09:48)
[2017-02-20 12:33] VITALS: BP 116/82
--- NOTE | 2017-02-20 21:14 | PDOC DISCHARGE SUMMARY ---
General - Admit/Disc Date/PCP Admission Date/Primary Care Provider: 02/14/17 15:15 Discharge Date: 02/20/17 - Discharge Diagnosis (1) Acute on chronic diastolic (congestive) heart failure Is this a current diagnosis for this admission?: Yes (2) Pneumonia Is this a current diagnosis for this admission?: Yes (3) Alcohol dependence with withdrawal with complication Is this a current diagnosis for this admission?: Yes (4) COPD (chronic obstructive pulmonary disease) Is this a current diagnosis for this admission?: Yes (5) Hiatal hernia with GERD Is this a current diagnosis for this admission?: Yes (6) Hypoxia Is this a current diagnosis for this admission?: Yes (7) Opiate dependence, continuous Is this a current diagnosis for this admission?: Yes (8) Anemia Is this a current diagnosis for this admission?: Yes (9) Hypomagnesemia Is this a current diagnosis for this admission?: Yes (10) Tobacco abuse Is this a current diagnosis for this admission?: Yes (11) Thoracic aortic aneurysm without rupture Is this a current diagnosis for this admission?: Yes - Additional Information Discharge Diet: Cardiac Discharge Activity: Activity As Tolerated, Weigh Daily Home Medications: Alprazolam 1 mg PO TIDP PRN 02/14/17 Budesonide/Formoterol Fumarate [Symbicort HFA 160-4.5 mcg Inhaler 6 gm] 2 puff IH Q12 02/14/17 Citalopram Hydrobromide [Celexa 40 mg Tablet] 1 tab PO DAILY 02/14/17 Esomeprazole Magnesium [Nexium 24Hr] 40 mg PO DAILY 02/14/17 Gabapentin 600 mg PO TID 02/14/17 [place]-3S/Dha/Epa/Fish Oil/D3 [Fish Oil + D3 Softgel] 1 each PO DAILY 02/14/17 Doxycycline Hyclate [Vibramycin 100 mg Tablet] 100 mg PO Q12@0800,2000 #10 tablet 02/20/17 Fluticasone Propionate [Flonase Nasal [place] 50 Mcg/[place] 16 gm] 1 spray NASL Q12 #1 bot 02/20/17 Folic Acid [Folvite 1 mg Tablet] 1 mg PO DAILY #30 tablet 02/20/17 Furosemide [Lasix 20 mg Tablet] 20 mg PO DAILY #30 tablet 02/20/17 Lisinopril [Prinivil 10 mg Tablet] 10 mg PO Q12 #60 tablet 02/20/17 Magnesium Oxide [Mag-Ox 400 mg Tablet] 800 mg PO TID #30 tablet 02/20/17 Montelukast Sodium [Singulair 10 mg Tablet] 10 mg PO QHS #30 tablet 02/20/17 Oxycodone HCl [Oxy-Ir 5 mg Tablet] 5 mg PO Q6HP PRN tablet 02/20/17 Thiamine HCl [Thiamine 100 mg Tablet] 100 mg PO DAILY #30 tablet 02/20/17 History of Present Illness History of Present Illness: Please see H&P for full HPI Hospital Course Hospital Course: Patient is a 38-year-old male with a known history of alcohol and tobacco dependency as well as COPD who presented to the emergency department with complaints of shortness of breath. Patient was found on presentation and an oxygen saturation of 85% respiratory rate of 30 and a heart rate of 132. Patient wasPlaced on empiric antibiotics for bilateral pneumonia as well as for COPD with exacerbation steroids. Patient had a CTA performed on 02/17/2017 which revealed no embolism, ascending thoracic aortic aneurysm, hiatal hernia, and small bilateral pleural effusions, and patchy airspace densities in the upper lung menjivar with left greater than right. Patient was initially placed on imipenem and this was tapered to doxycycline. Patient also underwent echocardiogram which revealed normal EF and mild diastolic dysfunction. Patient was empirically diuresed as she appeared to be volume overloaded and had an improvement of his requirement for oxygen as well as improvement in his infiltrate. Patient was felt at this time to have acute on chronic diastolic congestive heart failure.Patient was placed on lisinopril for his hypertension and daily Lasix. Patient at this time assistance or desire for medical alcohol withdrawal assistance. Patient was placed on as needed bourbon. Patient was also supplemented with thiamine and folic acid. Patient continued to improve and was gradually weaned off of oxygen and was no longer requiring oxygen prior to discharge. Patient was able to ambulate without assistance and was feeling much improved and requesting discharge. The remainder of his stay was unremarkable. Physical Exam Vital Signs: Temp Pulse Resp BP Pulse Ox 97.4 F 99 17 116/82 99 02/20/17 12:30 02/20/17 12:30 02/20/17 12:30 02/20/17 12:30 02/20/17 12:30 Intake & Output 02/19/17 02/20/1702/21/17 06:59 06:59 06:59 Intake Total 1250 1590 Output Total 241 1150 Balance 1009 440 Weight 68 kg 68.9 kg Exam: General: Awake, alert, oriented 3, no acute respiratory distress,appears older than stated age HEENT: AT/NC, prior nasal fracture, PERRL,EOMI, oropharynx is moist, pink, no scleral icterus, no conjunctival injection Neck: No JVD, trachea midline Chest: Clear to auscultation bilaterally I CV: Regular rate and rhythm, normal S1 and S2, no rub or gallop; 3/6 sm lusb Abdomen: Soft, nontender to palpation, nondistended, active bowel sounds; no rebound, rigidity, or guarding Extremities: No cyanosis, clubbing or edema Neuro: Cranial nerves II through XII are grossly intact without focal deficits Psych:normal mood and affect Results Laboratory Results: 02/20/17 05:37 02/20/17 05:37 02/20/17 02/20/17 05:37 05:37 WBC 10.2 RBC 4.27 L Hgb 10.7 L Hct 33.4 L MCV 78 L MCH 25.0 L MCHC 32.0 RDW 21.3 H Plt Count 253 Seg Neutrophils % 73.7 Lymphocytes % 10.8 L Monocytes % 15.4 H Eosinophils % 0.0 Basophils % 0.1 Absolute Neutrophils 7.5 Absolute Lymphocytes 1.1 Absolute Monocytes 1.6 H Absolute Eosinophils 0.0 Absolute Basophils 0.0 Sodium 136.2 L Potassium 4.4 Chloride 92 L Carbon Dioxide 35 H Anion Gap 9 BUN 19 Creatinine 0.57 Est GFR ( Amer) > 60 Est GFR (Non-Af Amer) > 60 Glucose 121 H Calcium 9.4 Magnesium 1.8 02/17/17 13:03 Stool - Stool - Final 02/17/17 13:03 Stool - Stool Stool Culture - Final C.albicans/C.dubliniensis 02/17/17 13:04 Clean Catch Midstream Legionella Urinary Antigen - Final 02/16/17 02/17/17 04:23 04:50 NT-Pro-B Natriuret Pep 2940 H 4030 H Impressions: Chest/Abdomen CTA 02/17/17 00:00 IMPRESSION: No evidence for pulmonary embolic disease. Dilatation of the ascending thoracic aorta measuring 4.3 cm in diameters consistent with an aneurysm. Confluent airspace densities in the upper lung menjivar left greater than right with patchy airspace densities in remainder the lung menjivar which could represent pulmonary edema or pneumonic infiltrates. Small bilateral pleural effusions are identified. Other findings as noted above Chest X-Ray 02/20/17 06:00 IMPRESSION: Interval improvement as noted above. Qualifiers PATEINT BEING DISCHARGED WITH ANY OF THE FOLLOWING DIAGNOSIS?: Heart Failure HF Pt being discharged on ACEI for LVEF less than 40%?: Yes HF Pt being discharged on ARBS for LVEF less than 40%?: No Reason(s) for not prescribing ARBS:: Not indicated - On a HF Pt with Afib discharged with Warfarin?: No Reason(s) for not prescribing Warfarin:: Not indicated - No A. fib HF Pt discharged on evidence-based Beta Nicky:: No Reason(s) for not prescribing evidence-based Beta Nicky:: Propensity to reaction - EF greater than 40 bronchospastic disease Plan Time Spent: Less than 30 Minutes
== END 2017-02-20 13:52 | disposition home or self-care (01) | DRG 190 ==
LOC: ER 12:18 → EH 15:15 → UNDOADMIN 15:31 → EH 15:31 → 3W 17:29
PROC: 3E0F73Z Introduction of Anti-inflammatory into Respiratory Tract, Via Natural or Artificial Opening (ICD-10-PCS; 2017-02-14)
PROC: 5A09457 Assistance with Respiratory Ventilation, 24-96 Consecutive Hours, Continuous Positive Airway Pressure (ICD-10-PCS; principal; 2017-02-17)
DX: J44.0 Chronic obstructive pulmonary disease with (acute) lower respiratory infection (principal); J18.9 Pneumonia, unspecified organism; J96.21 Acute and chronic respiratory failure with hypoxia; J96.22 Acute and chronic respiratory failure with hypercapnia; I50.33 Acute on chronic diastolic (congestive) heart failure; N17.9 Acute kidney failure, unspecified; F17.200 Nicotine dependence, unspecified, uncomplicated; J44.1 Chronic obstructive pulmonary disease with (acute) exacerbation; F10.20 Alcohol dependence, uncomplicated; E83.42 Hypomagnesemia; K44.9 Diaphragmatic hernia without obstruction or gangrene; K21.9 Gastro-esophageal reflux disease without esophagitis; Z79.891 Long term (current) use of opiate analgesic; D64.9 Anemia, unspecified; I71.2 Thoracic aortic aneurysm, without rupture
CPT/HCPCS: 36415; 36600; 71010; 71020; 71275; 80048; 80053; 81001; 82271; 82272; 82803; 82962; 83036; 83605; 83735; 83880; 84484; 85025; 85027; 85379; 85610; 86701; 87040; 87045; 87086; 87205; 87493; 89055; 93005; 93010; 93306; 94640; 94667; 94668; 94799; 96360; 99291; J0456; J0696; J0743; J1940; J2060; J2920; J2930; J3475; J3480; J3490; J7030; J7614

== ENCOUNTER 2018-04-17 00:02 | Inpatient (IN) | payer MEDICARE, MEDICAID ==
[2018-04-17] MEDS ORDERED: THIAMINE HCL 100 MG, FOLIC ACID 1 MG in NORMAL SALINE 250 ML IV ONE (00:11)
[2018-04-17] MEDS ORDERED: NORMAL SALINE 1000 ML 1,000 ML IV ONE (00:11)
[2018-04-17] MEDS ORDERED: ALBUTEROL SULFATE 0.083% NEB 2.5 MG/3 ML AMPUL NEB ONE ×2 (00:12→02:35)
[2018-04-17] MEDS ORDERED: NICOTINE 21 MG/24 HR PATCH.TD24 TD ONE (00:14)
--- NOTE | 2018-04-17 00:14 | ER Document Report ---
ED General - General Stated Complaint: SHORTNESS OF BREATH Time Seen by Provider: 04/17/18 00:04 Notes: Patient is a 47-year-old male with a past medical history of alcohol dependency , chronic opiate abuse, COPD with active smoking who presents with 1 week of progressively worsening shortness of breath. The patient reports that his symptoms were bad enough tonight that he finally decided to call an ambulance. He admits to drinking heavily tonight. He states that his shortness of breath is constant, worsened by exertion. He has used an inhaler at home with minimal to no improvement. He has not seen a general doctor regarding today's concerns. He has been hospitalized approximately 1 year ago for similar presentation at that time was found to have a pneumonia. He states he does feel quite similar. He denies any fever, chest pain, focal weakness or numbness. TRAVEL OUTSIDE OF THE [place] IN LAST 30 DAYS: No - Related Data Allergies/Adverse Reactions: No Known Allergies Allergy (Verified 02/14/17 15:30) Past Medical History - General Information source: Patient - Social History Smoking Status: Current Every Day Smoker Frequency of alcohol use: Heavy Drug Abuse: None Lives with: Alone Family History: Reviewed & Not Pertinent - Past Medical History Cardiac Medical History: Reports: Hx Hypertension Pulmonary Medical History: Reports: Hx Pneumonia GI Medical History: Reports: Hx Ulcer Review of Systems - Review of Systems Notes: Constitutional: Negative for fever. HENT: Negative for sore throat. Eyes: Negative for visual changes. Cardiovascular: Negative for chest pain. Respiratory: Positive for shortness of breath. Gastrointestinal: Negative for abdominal pain, vomiting or diarrhea. Genitourinary: Negative for dysuria. Musculoskeletal: Negative for back pain. Skin: Negative for rash. Neurological: Negative for headaches, weakness or numbness. 10 point ROS negative except as marked above and in HPI. Physical Exam - Vital signs Vitals: Temp Pulse Resp BP Pulse Ox 97.7 F 126 H 21 H 127/96 H 94 04/17/18 00:05 04/17/18 00:05 04/17/18 00:05 04/17/18 00:05 04/17/18 00:05 Interpretation: Tachycardic Notes: PHYSICAL EXAMINATION: GENERAL: Appears much older than stated age. HEAD: Atraumatic, normocephalic. EYES: Pupils equal round and reactive to light, extraocular movements intact, sclera anicteric, conjunctiva are normal. ENT: nares patent, oropharynx clear without exudates. Moderately dry mucous membranes. NECK: Normal range of motion, supple without lymphadenopathy LUNGS: Mild respiratory distress, breathing approximately 24 times per minute, scattered extra Tory wheezing in all lung menjivar with a prolonged expiratory phase. HEART: Regular tachycardia without murmurs ABDOMEN: Soft, nontender, normoactive bowel sounds. No guarding, no rebound. No masses appreciated. EXTREMITIES: Normal range of motion, no pitting or edema. No cyanosis. NEUROLOGICAL: No focal neurological deficits. Moves all extremities spontaneously and on command. PSYCH: Intoxicated but pleasant on contact SKIN: Warm, Dry, normal turgor, no rashes or lesions noted. Course - Re-evaluation Re-evalutation: 04/17/18 00:12 Patient presents in mild respiratory distress, breathing 20-23 times per minute , wheezing in all lobes and expiratory phase of prolonged expiratory phase. The patient is also acutely intoxicated states "I drink enough to sink a battleship tonight". Saturating 95% on room air. Has received magnesium 2 g, Solu-Medrol, 4 albuterol and Atrovent treatments prior to arrival. Will place on segmental oxygen for comfort, begin additional albuterol nebulizers, obtain labs, chest x-ray, provide thiamine and folate as patient notes he is a chronic alcoholic, and reassess the patient 04/17/18 02:30 Chest x-ray without any evidence of a pneumonia but does show hyperinflation and signs consistent with acute COPD. Patient continues to be wheezy, tachypnea , moderate tachycardic, continues to be acutely intoxicated. He has agreed hospitalization. Will discuss with the hospitalist. - Vital Signs Vital signs: Temp Pulse Resp BP Pulse Ox 97.7 F 126 H 25 H 124/87 H 96 04/17/18 00:05 04/17/18 00:05 04/17/18 02:01 04/17/18 02:00 04/17/18 02:01 - Laboratory Result Diagrams: 04/17/18 00:19 04/17/18 00:19 Laboratory results interpreted by me: 04/17/18 04/17/18 00:19 00:19 WBC 11.0 H Hgb 11.7 L Hct 36.3 L MCV 77 L MCH 24.7 L RDW 21.9 H Monocytes % (Manual) 2 L Carbon Dioxide 20 L Anion Gap 22 H Total Protein 8.4 H Serum Alcohol 392 H* - Diagnostic Test Radiology reviewed: Image reviewed, Reports reviewed Radiology results interpreted by me: 04/17/18 02:30 Chest x-ray: No acute pneumonia or pneumothorax - EKG Interpretation by Me Additional EKG results interpreted by me: 04/17/18 02:45 Sinus tachycardia. Rate 122. No ST elevations or depressions. QTC is 468. Discharge - Discharge Clinical Impression: Alcoholism, COPD exacerbation, Tobacco abuse Condition: Fair Disposition: ADMITTED INPATIENT Admitting Provider: Hospitalist Unit Admitted: Telemetry
[2018-04-17] MEDS ORDERED: THIAMINE HCL INJ 200 MG/2 ML VIAL ONE (00:19)
[2018-04-17] MEDS ORDERED: FOLIC ACID INJ 5 MG/1 ML 10 ML VIAL ONE (00:19)
[2018-04-17 00:35] LABS: HEMATOCRIT 36.3 % (37.9-51.0); HEMOGLOBIN 11.7 g/dL (13.5-17.0); MEAN CORPUSCULAR HEMOGLOBIN 24.7 pg (27.0-33.4); MEAN CORPUSCULAR HGB CONC 32.2 g/dL (32.0-36.0); MEAN CORPUSCULAR VOLUME 77 fl (80-97); PLATELET COUNT 204 10^3/uL (150-450); RED BLOOD COUNT 4.73 10^6/uL (4.35-5.55); RED CELL DISTRIBUTION WIDTH 21.9 % (11.5-14.0)
[2018-04-17 00:52] LABS: ABSOLUTE LYMPHOCYTES# (MANUAL) 3.6 10^3/uL (0.5-4.7); ABSOLUTE MONOCYTES # (MANUAL) 0.2 10^3/uL (0.1-1.4); ABSOLUTE NEUTROPHILS# (MANUAL) 6.7 10^3/uL (1.7-8.2); BASOPHILS % (MANUAL) 1 % (0-2); EOSINOPHILS % (MANUAL) 3 % (0-6); LYMPHOCYTES % (MANUAL) 31 % (13-45); MONOCYTES % (MANUAL) 2 % (3-13); SEGMENTED NEUTROPHILS % (MAN) 61 % (42-78); TOTAL CELLS COUNTED 100
[2018-04-17 00:53] LABS: ALANINE AMINOTRANSFERASE 35 U/L (21-72); ALBUMIN 4.4 g/dL (3.5-5.0); ALKALINE PHOSPHATASE 85 U/L (38-126); ASPARTATE AMINO TRANSFERASE 52 U/L (17-59); BILIRUBIN,DIRECT 0.4 mg/dL (0.0-0.4); BILIRUBIN,TOTAL 0.7 mg/dL (0.2-1.3); BLOOD UREA NITROGEN 7 mg/dL (7-20); CALCIUM 8.8 mg/dL (8.4-10.2); GLUCOSE 84 mg/dL (75-110); POTASSIUM 4.3 mmol/L (3.6-5.0); TOTAL PROTEIN 8.4 g/dL (6.3-8.2)
[2018-04-17 00:55] LABS: ANISOCYTOSIS 2+; HYPOCHROMASIA SLIGHT; OVALOCYTES SLIGHT; PLATELET COMMENT ADEQUATE; POIKILOCYTOSIS SLIGHT
[2018-04-17 00:56] LABS: PLATELET CLUMPS PRESENT
[2018-04-17 00:57] LABS: CARBON DIOXIDE 20 mmol/L (22-30); CHLORIDE 101 mmol/L (98-107); SODIUM 143.4 mmol/L (137-145)
--- NOTE | 2018-04-17 01:00 | RADIOLOGY REPORT (SQ) ---
Clinical History : sob , Exam : Portable AP view of the chest 04/17/2018 12:10 AM CDT Comparisons : PA and lateral views of the chest February 20, 2018 PA and lateral views of the chest February 16, 2017 Findings : There is patchy left basilar airspace disease with elevated left hemidiaphragm. There is stable blunting of the right costophrenic angle.. The heart is stable in size. The mediastinal contours are normal in appearance. The thoracic spine is age appropriate. The shoulders are unremarkable. Limited evaluation of the upper abdomen demonstrates no gross abnormalities. Impression: Elevated left hemidiaphragm with bibasilar subsegmental airspace disease, likely atelectasis.
[2018-04-17 01:05] LABS: ANION GAP 22 (5-19)
[2018-04-17 01:07] LABS: ALCOHOL 392 mg/dL (NONE DETECTED)
[2018-04-17] MEDS ORDERED: IPRATROPIUM/ALBUTEROL 0.5-2.5 MG/3 ML AMPUL NEB SCH (03:00)
[2018-04-17] MEDS ORDERED: ONDANSETRON HCL INJ/PF 4 MG/2 ML SDV IV PRN (03:03)
[2018-04-17] MEDS ORDERED: MAG HYDROX/AL HYDROX/SIMETH SUSP 30 ML UDCUP PO PRN (03:03)
[2018-04-17] MEDS ORDERED: ACETAMINOPHEN 650 MG SUPP.RECT PR PRN (03:03)
[2018-04-17] MEDS ORDERED: AZITHROMYCIN INJ 500 MG VIAL IV ONE (03:14)
[2018-04-17] MEDS ORDERED: OXYCODONE HCL IR 5 MG TABLET PO SCH (03:15)
[2018-04-17] MEDS ORDERED: ALPRAZOLAM 0.5 MG TABLET PO PRN (03:30)
[2018-04-17] MEDS ORDERED: LORAZEPAM INJ 2 MG/1 ML VIAL IV SCH (03:45)
[2018-04-17] MEDS ORDERED: NITROGLYCERIN 0.4 MG/TAB 25 TAB/BOTTLE SL PRN ×2 (03:46→03:50)
[2018-04-17] MEDS ORDERED: LORAZEPAM INJ 2 MG/1 ML VIAL IV ONE (03:50)
[2018-04-17] MEDS ORDERED: MORPHINE SULFATE 10 MG/ML INJ IV PRN (03:55)
--- NOTE | 2018-04-17 04:09 | PDOC H&P ---
History of Present Illness Admission Date/PCP: 04/17/18 02:58 Patient complains of: Shortness of breath History of Present Illness: CLAYTON GORMAN is a 47 year old male with history of multiple medical problems though mentioned below presented in the emergency room with acute onset of dyspnea with associated cough productive of clear sputum and wheezing which have been worsening over the last 4 days. He denies any fever however has been having chills. He denied any nausea or vomiting. He admitted to left-sided chest tightness and there is moderate in intensity with no radiation. No headache or dizziness or blurred vision. He was feeling slightly jittery and nervous in the ER. When he came his EKG showed sinus tachycardia with a rate 122 the left axis deviation. Chest x-ray showed no acute cardiopulmonary disease. His labs revealed Mild leukocytosis and anemia and his anion gap was 22 CO2 20 and total protein of 8.4. CMP otherwise within normal and troponin was less than 0.0 12. Alcohol level was 392. Patient received IV thiamine as well as folic acid and hydration with IV normal saline in the ER in addition to Ativan for early alcohol withdrawal. The patient will be admitted to an [facility] bed for further evaluation and management. Past Medical History Cardiac Medical History: Reports: Hypertension Pulmonary Medical History: Reports: Chronic Obstructive Pulmonary Disease (COPD) , Pneumonia, Other - Tobacco abuse Past Surgical History Past Surgical History: Reports: None Social History Lives with: Alone Smoking Status: Current Every Day Smoker Frequency of Alcohol Use: Heavy Hx Recreational Drug Use: No Family History Family History: None Parental Family History Reviewed: Yes Children Family History Reviewed: Yes Sibling(s) Family History Reviewed.: Yes Medication/Allergy Home Medications: Alprazolam 1 mg PO TIDP PRN 02/14/17 Budesonide/Formoterol Fumarate [Symbicort HFA 160-4.5 mcg Inhaler 6 gm] 2 puff IH Q12 02/14/17 Citalopram Hydrobromide [Celexa 40 mg Tablet] 1 tab PO DAILY 02/14/17 Esomeprazole Magnesium [Nexium 24Hr] 40 mg PO DAILY 02/14/17 Gabapentin 600 mg PO TID 02/14/17 Raymond-3S/Dha/Epa/Fish Oil/D3 [Fish Oil-Vit D3 Softgel] 1 each PO DAILY 02/14/17 Doxycycline Hyclate [Vibramycin 100 mg Tablet] 100 mg PO Q12@0800,2000 #10 tablet 02/20/17 Fluticasone Propionate [Flonase Nasal [place] 50 Mcg/[place] 16 gm] 1 spray NASL Q12 #1 bot 02/20/17 Folic Acid [Folvite 1 mg Tablet] 1 mg PO DAILY #30 tablet 02/20/17 Furosemide [Lasix 20 mg Tablet] 20 mg PO DAILY #30 tablet 02/20/17 Lisinopril [Prinivil 10 mg Tablet] 10 mg PO Q12 #60 tablet 02/20/17 Magnesium Oxide [Mag-Ox 400 mg Tablet] 800 mg PO TID #30 tablet 02/20/17 Montelukast Sodium [Singulair 10 mg Tablet] 10 mg PO QHS #30 tablet 02/20/17 Oxycodone HCl [Oxy-Ir 5 mg Tablet] 5 mg PO Q6HP PRN tablet 02/20/17 Thiamine HCl [Thiamine 100 mg Tablet] 100 mg PO DAILY #30 tablet 02/20/17 Allergies/Adverse Reactions: No Known Allergies Allergy (Verified 02/14/17 15:30) Review of Systems Review of Systems: As per history of present illness. All pertinent systems were reviewed above. Constitutional, HEENT, cardiovascular, respiratory, GI, , musculoskeletal, neuro, psychiatric, endocrine, integumentary and hematologic systems were reviewed and are otherwise negative/unremarkable except for positive findings mentioned above in the HPI. Physical Exam Vital Signs: Temp Pulse Resp BP Pulse Ox 97.7 F 126 H 27 H 137/78 H 95 04/17/18 00:05 04/17/18 00:05 04/17/18 03:01 04/17/18 03:01 04/17/18 03:01 Intake & Output 04/15/18 04/16/18 04/17/18 06:59 06:59 06:59 Weight 68 kg General appearance: PRESENT: no acute distress, mild distress, well-developed, well-nourished Head exam: PRESENT: atraumatic, normocephalic Eye exam: PRESENT: conjunctiva pink, EOMI, PERRLA. ABSENT: scleral icterus Mouth exam: PRESENT: moist, tongue midline Neck exam: ABSENT: carotid bruit, JVD, lymphadenopathy, thyromegaly Respiratory exam: PRESENT: decreased breath sounds, prolonged expiratory phas, wheezes - Diffuse expiratory. ABSENT: rales, rhonchi Cardiovascular exam: PRESENT: RRR. ABSENT: diastolic murmur, rubs, systolic murmur Vascular exam: PRESENT: normal capillary refill GI/Abdominal exam: PRESENT: normal bowel sounds, soft. ABSENT: distended, guarding, mass, organolmegaly, rebound, tenderness Rectal exam: PRESENT: deferred Extremities exam: ABSENT: calf tenderness, clubbing, pedal edema Neurological exam: PRESENT: alert, awake, oriented to person, oriented to place , oriented to time, oriented to situation, CN II-XII grossly intact. ABSENT: motor sensory deficit Psychiatric exam: PRESENT: anxious - Slightly jittery, appropriate affect. ABSENT: homicidal ideation, suicidal ideation Skin exam: PRESENT: dry, intact, warm. ABSENT: cyanosis, rash Results EKG Comments: EKG showed sinus tachycardia with rate 122 with left axis deviation Assessment & Plan - Diagnosis (1) COPD exacerbation Is this a current diagnosis for this admission?: Yes Plan: The patient will be admitted to a [facility] bed and will be placed on IV steroid therapy with IV Solu-Medrol as well as nebulized bronchodilator therapy with duonebs q.i.d. and q.4 hours p.r.n., mucolytic therapy with Mucinex and antibiotic therapy with IV Rocephin and Zithromax. Sputum Gram stain culture and sensitivity will be obtained. O2 protocol will be followed. (2) Chest pain Is this a current diagnosis for this admission?: Yes Plan: Chest pain, rule out acute coronary syndrome. Will follow serial cardiac enzymes and EKGs. We will obtain a cardiology consult in a.m. for further cardiac risk stratification. The patient will be placed on aspirin as well as p.r.n. sublingual nitroglycerin and morphine sulfate for pain. (4) Hypertension Is this a current diagnosis for this admission?: No Plan: The patient will be continued on lisinopril (5) Anxiety and depression Is this a current diagnosis for this admission?: Yes Plan: Celexa and Xanax will be resumed (6) Peripheral neuropathy Is this a current diagnosis for this admission?: No Plan: Neurontin will be continued (7) GERD (gastroesophageal reflux disease) Is this a current diagnosis for this admission?: Yes Plan: Continue PPI therapy (8) Hiatal hernia with GERD Is this a current diagnosis for this admission?: Yes (9) Tobacco abuse Is this a current diagnosis for this admission?: Yes (10) DVT prophylaxis Is this a current diagnosis for this admission?: Yes Plan: Subcutaneous Lovenox
[2018-04-17 04:59] LABS: HEMOGLOBIN 10.4 g/dL (13.5-17.0); MEAN CORPUSCULAR HEMOGLOBIN 24.6 pg (27.0-33.4); MEAN CORPUSCULAR HGB CONC 31.6 g/dL (32.0-36.0); MEAN CORPUSCULAR VOLUME 78 fl (80-97); PLATELET COUNT 162 10^3/uL (150-450); RED BLOOD COUNT 4.25 10^6/uL (4.35-5.55); RED CELL DISTRIBUTION WIDTH 21.9 % (11.5-14.0); WHITE BLOOD COUNT 6.4 10^3/uL (4.0-10.5)
[2018-04-17 05:10] LABS: BLOOD UREA NITROGEN 7 mg/dL (7-20); GLUCOSE 173 mg/dL (75-110); POTASSIUM 3.4 mmol/L (3.6-5.0)
[2018-04-17 05:16] LABS: CARBON DIOXIDE 14 mmol/L (22-30); CHLORIDE 105 mmol/L (98-107)
[2018-04-17 05:21] LABS: ANION GAP 27 (5-19)
[2018-04-17 05:22] LABS: CREATINE KINASE MB 1.07 ng/mL (<4.55)
[2018-04-17 05:23] LABS: TROPONIN I < 0.012 ng/mL
[2018-04-17 05:28] LABS: ABSOLUTE LYMPHOCYTES# (MANUAL) 0.2 10^3/uL (0.5-4.7); ABSOLUTE NEUTROPHILS# (MANUAL) 6.1 10^3/uL (1.7-8.2); BASOPHILS % (MANUAL) 1 % (0-2); EOSINOPHILS % (MANUAL) 1 % (0-6); LYMPHOCYTES % (MANUAL) 3 % (13-45); MONOCYTES % (MANUAL) 0 % (3-13); SEGMENTED NEUTROPHILS % (MAN) 95 % (42-78); TOTAL CELLS COUNTED 100
[2018-04-17 05:29] LABS: ANISOCYTOSIS 1+; HYPOCHROMASIA 2+; PLATELET COMMENT ADEQUATE; POIKILOCYTOSIS 1+
[2018-04-17] MEDS: LANSOPRAZOLE 30 MG TAB.RAP.DR PO SCH ×2 (06:06→16:40)
[2018-04-17] MEDS: METHYLPREDNISOLONE INJ 40 MG/1 ML SDV IV SCH ×3 (06:07→22:08)
[2018-04-17] MEDS: NORMAL SALINE 1000 ML 1,000 ML IV PRN (06:11)
--- NOTE | 2018-04-17 09:42 | EKG REPORT ---
SEVERITY:- BORDERLINE ECG - SINUS TACHYCARDIA PROBABLE LEFT ATRIAL ABNORMALITY BORDERLINE LEFT AXIS DEVIATION : Confirmed by: Basilia Merida 17-Apr-2018 09:42:21
[2018-04-17] MEDS ORDERED: THIAMINE HCL 100 MG TABLET PO SCH (10:00)
[2018-04-17] MEDS ORDERED: MAGNESIUM OXIDE 400 MG TABLET PO SCH (10:00)
[2018-04-17] MEDS ORDERED: CEFTRIAXONE SODIUM 2,000 MG in DEXTROSE 5%-WATER 100 ML IV SCH (10:00)
[2018-04-17] MEDS: CEFTRIAXONE 2 GM/D5W RTU 2 GM/50 ML RTUPB IV SCH (11:03)
[2018-04-17] MEDS: CITALOPRAM HYDROBROMIDE 20 MG TABLET PO SCH (11:03)
[2018-04-17] MEDS: ASPIRIN 81 MG TABLET, CHEWABLE PO SCH (11:03)
[2018-04-17] MEDS: FOLIC ACID 1 MG TABLET PO SCH (11:04)
[2018-04-17] MEDS: ENOXAPARIN SODIUM INJ 40 MG/0.4 ML DISP.SYRIN SUBCUT SCH (11:04)
[2018-04-17] MEDS: FLUTICASONE NASAL SPRAY 50 MCG/SPRY 120 SPRAY/16 GM NASL SCH ×2 (11:04→22:07)
[2018-04-17] MEDS: GUAIFENESIN 600 MG TABLET.SA PO SCH ×2 (11:05→22:07)
[2018-04-17] MEDS: FUROSEMIDE 20 MG TABLET PO SCH (11:05)
[2018-04-17] MEDS: GABAPENTIN 300 MG CAPSULE PO SCH ×3 (11:05→18:56)
[2018-04-17] MEDS: LISINOPRIL 10 MG TABLET PO SCH ×2 (11:06→22:08)
[2018-04-17] MEDS: OMEGA-3 ACID ETHYL ESTERS 1 GM CAPSULE PO SCH (11:06)
[2018-04-17] MEDS: LORAZEPAM INJ 2 MG/1 ML VIAL IV PRN ×5 (11:08→23:56)
[2018-04-17 12:18] LABS: CREATINE KINASE MB 1.49 ng/mL (<4.55)
[2018-04-17 12:27] LABS: TROPONIN I < 0.012 ng/mL
--- NOTE | 2018-04-17 15:54 | PDOC CONSULTATION ---
Consultation Consult Date: 04/17/18 Attending physician:: MARY LADD Consult reason:: Chest pain History of Present Illness Admission Date/PCP: 04/17/18 02:58 Patient complains of: Chest pain History of Present Illness: CLAYTON GORMAN is a 47 year old male with history of multiple medical problems though mentioned below presented in the emergency room with acute onset of dyspnea with associated cough productive of clear sputum and wheezing which have been worsening over the last 4 days. He denies any fever however has been having chills. He denied any nausea or vomiting. He admitted to left-sided chest tightness and there is moderate in intensity with no radiation. No headache or dizziness or blurred vision. He was feeling slightly jittery and nervous in the ER. When he came his EKG showed sinus tachycardia with a rate 122 the left axis deviation. Chest x-ray showed no acute cardiopulmonary disease. His labs revealed Mild leukocytosis and anemia and his anion gap was 22 CO2 20 and total protein of 8.4. CMP otherwise within normal and troponin was less than 0.0 12. Alcohol level was 392. Patient received IV thiamine as well as folic acid and hydration with IV normal saline in the ER in addition to Ativan for early alcohol withdrawal. The patient will be admitted to an IMCU bed for further evaluation and management. This history obtained by the hospitalist was reviewed and confirmed with the patient. Patient on questioning denied any prior history of myocardial infarction, angina, congestive heart failure or heart problem. Patient was noted to be somewhat tremulous and anxious. He could be withdrawing from alcohol. Past Medical History Cardiac Medical History: Reports: Hypertension Pulmonary Medical History: Reports: Chronic Obstructive Pulmonary Disease (COPD) , Pneumonia, Other - Tobacco abuse Past Surgical History Past Surgical History: Reports: None Social History Information Source: Patient Lives with: Alone Smoking Status: Current Every Day Smoker Frequency of Alcohol Use: Heavy Hx Recreational Drug Use: No - Advance Directive Resuscitation Status: Full Code Surrogate healthcare decision maker:: Patient did not want to identify a surrogate decision-maker Family History Family History: Hypertension Parental Family History Reviewed: Yes Children Family History Reviewed: Yes Sibling(s) Family History Reviewed.: Yes Medication/Allergy Home Medications: Alprazolam 1 mg PO TIDP PRN 02/14/17 Budesonide/Formoterol Fumarate [Symbicort HFA 160-4.5 mcg Inhaler 6 gm] 2 puff IH Q12 02/14/17 Citalopram Hydrobromide [Celexa 40 mg Tablet] 40 mg PO DAILY 02/14/17 Gabapentin 600 mg PO Q8HP PRN 02/14/17 Fluticasone Propionate [Flonase Nasal [place] 50 Mcg/[place] 16 gm] 1 spray NASL Q12 #1 bot 02/20/17 Furosemide [Lasix 20 mg Tablet] 20 mg PO DAILY #30 tablet 02/20/17 Esomeprazole Mag Trihydrate [Nexium] 40 mg PO DAILY 04/17/18 Oxycodone HCl 15 mg PO Q6HP PRN 04/17/18 Potassium Chloride [Klor-Con 10 Meq Capsule ER] 10 meq PO DAILY 04/17/18 Allergies/Adverse Reactions: No Known Allergies Allergy (Verified 02/14/17 15:30) Review of Systems Review of Systems: Please see history of present illness and past medical history as wall. Constitutional: No fever or chills reported. Head : No recent chronic headaches, recent head injury. Eyes: No recent eye pain, diplopia, redness, discharge, acute visual changes. Ears: No recent chronic ear pain, acute hearing loss, ear discharge. Oral cavity: No recent ulcerations, bleeding, oral cavity discomfort. Neck: No recent acute neck pain reported. Hematologic: No recent easy bruising or bleeding. Lymphatic: No recent lymph node enlargement reported. Cardiovascular system review: See history of present illness. Respiratory system review: No hemoptysis or blood clots in the lungs reported. Mild Shortness of breath on exertion Gastrointestinal system review: Negative for any recent acute hematemesis, melena. Genitourinary system review: No recent acute or chronic hematuria, flank pain, UTI etc. reported. Skin system review: Negative for any recent abnormal bruising, no rash, no pruritus reported. Neurologic: No prior history of strokes, mini strokes, seizure disorder. Psychologic: No history of major psychosis or major depression reported. Musculoskeletal: Minor aches and pains reported. No acute joint swelling reported. Endocrine: No recent polyuria, polydipsia, recent heat or cold intolerance. Physical Exam Vital Signs: Temp Pulse Resp BP Pulse Ox 97.7 F 126 H 20 145/94 H 95 04/17/18 00:05 04/17/18 00:05 04/17/18 13:01 04/17/18 13:01 04/17/18 13:01 Intake & Output 04/16/18 04/17/18 04/18/18 06:59 06:59 06:59 Weight 68 kg Exam: GENERAL: well-nourished and in no acute distress. Alert and oriented x3 HEAD: Atraumatic, normocephalic. EYES: Pupils equal round and reactive to light, extraocular movements intact, sclera anicteric, conjunctiva are normal. ENT: TMs normal, nares patent, oropharynx clear without exudates. Moist mucous membranes. No oral ulcerations or bleeding gums noted NECK: supple without lymphadenopathy. Trachea is central. No cervical or axillary lymphadenopathy noted. Carotids are 2+, JVD WNL LUNGS: Respiration seems nonlabored, no significant accessory muscle action noted. Breath sounds clear to auscultation bilaterally and equal noted. No wheezes rales or rhonchi noted. No significant dullness noted on percussion. CHEST: Palpation of the chest wall shows no significant chest wall tenderness. HEART: [place] [employer], No PSH, 1/6 MARAH aortic area, 1/6 morrison systolic murmur mitral area, no rubs, no gallops. ABDOMEN: Soft, no significant tenderness appreciated, normoactive bowel sounds. No guarding, no rebound. No rigidity noted . No masses appreciated. EXTREMITIES: Pedal pulses are 1-2+, no calf tenderness noted. No clubbing or cyanosis. negative pedal edema noted NEUROLOGICAL: Focused neurological exam showed no significant neurologic deficit. Normal speech, no focal weakness appreciated. PSYCH: Normal mood, normal affect. Judgment and insight within normal limits. Patient however noted to be anxious and somewhat tremulous. SKIN: No significant ecchymosis, skin is noted to be warm. MUSCULOSKELETAL EXAM: No significant acute joint swelling noted. Results Laboratory Results: 04/17/18 04:34 04/17/18 04:34 04/17/18 04/17/18 04:34 04:34 WBC 6.4 RBC 4.25 L Hgb 10.4 L Hct 33.0 L MCV 78 L MCH 24.6 L MCHC 31.6 L RDW 21.9 H Plt Count 162 Seg Neutrophils % Not Reportable Lymphocytes % Not Reportable Monocytes % Not Reportable Eosinophils % Not Reportable Basophils % Not Reportable Absolute Neutrophils Not Reportable Absolute Lymphocytes Not Reportable Absolute Monocytes Not Reportable Absolute Eosinophils Not Reportable Absolute Basophils Not Reportable Sodium 146.0 H Potassium 3.4 L Chloride 105 Carbon Dioxide 14 L Anion Gap 27 H BUN 7 Creatinine 0.70 Est GFR ( Amer) > 60 Est GFR (Non-Af Amer) > 60 Glucose 173 H Calcium 8.0 L 04/17/18 04/17/18 04/17/18 04:34 04:34 11:34 Creatine Kinase 69 63 CK-MB (CK-2) 1.07 Troponin I < 0.012 04/17/18 11:34 Creatine Kinase CK-MB (CK-2) 1.49 Troponin I < 0.012 EKG Comments: Shows sinus tachycardia without any acute ST-T wave changes Assessment & Plan - Diagnosis (1) Chest pain Qualifiers: Chest pain type: unspecified Qualified Code(s): R07.9 - Chest pain, unspecified Is this a current diagnosis for this admission?: Yes (2) COPD exacerbation Is this a current diagnosis for this admission?: Yes (3) GERD (gastroesophageal reflux disease) Is this a current diagnosis for this admission?: Yes (4) Hypertension Qualifiers: Hypertension type: essential hypertension Qualified Code(s): I10 - Essential (primary) hypertension Is this a current diagnosis for this admission?: Yes (5) Tobacco abuse Is this a current diagnosis for this admission?: Yes (6) Alcohol intoxication Qualifiers: Complication of substance-induced condition: with unspecified complication Qualified Code(s): F10.929 - Alcohol use, unspecified with intoxication, unspecified Is this a current diagnosis for this admission?: Yes (7) Alcohol abuse Is this a current diagnosis for this admission?: Yes - Notes Notes: Chest pain: Patient does have significant cardiac risk factors which includes hypertension, tobacco abuse. Patient will benefit from a nuclear stress test. Will repeat EKG. We will do follow-up echocardiogram for thoracic aortic aneurysm and for any wall motion abnormalities. We will continue to follow closely and is scheduled when patient is able to tolerate a pharmacologic stress test. COPD exacerbation: Patient has been advised to quit smoking. Continue therapy as prescribed by the hospitalist. Gastroesophageal reflux disease: This is in the differential diagnosis of chest pain. Recommend double dose proton pump inhibitor. Hypertension: Patient has prior history of thoracic aorta dilatation. Recommend good control of blood pressure especially with beta-dustin if no contraindication. Blood pressure goal should be 135/85 or less. Tobacco abuse: Patient has been advised to quit smoking. Alcohol abuse: Patient currently seems to be withdrawing. Observe closely. Treat with benzodiazepines, beta-dustin as needed. - Time Time Spent: 30 to 50 Minutes - More than 50% of the time spent coordinating care , discussing management plans with involved caregivers. Management plans discussed with involved personnels. Medical decision making was of moderate to high complexity, patient's has multiple comorbidities. Medications reviewed and adjusted accordingly: Yes
[2018-04-17] MEDS: IPRATROPIUM/ALBUTEROL 0.5-2.5 MG/3 ML AMPUL NEB PRN (16:44)
[2018-04-17] MEDS ORDERED: ACETAMINOPHEN 325 MG TABLET PO PRN (18:09)
[2018-04-17 18:34] LABS: CREATINE KINASE MB 1.77 ng/mL (<4.55)
[2018-04-17 18:38] LABS: TROPONIN I < 0.012 ng/mL
[2018-04-17] MEDS: NORMAL SALINE 1000 ML 1,000 ML with POTASSIUM CHLORIDE 20 MEQ, MAGNESIUM SULFATE 8 MEQ,... IV SCH ×5 (18:56)
[2018-04-17] MEDS: ONDANSETRON 4 MG TAB.RAPDIS PO PRN (21:25)
[2018-04-17] MEDS: MONTELUKAST SODIUM 10 MG TABLET PO SCH (22:07)
[2018-04-18] MEDS: LORAZEPAM INJ 2 MG/1 ML VIAL IV PRN ×7 (03:12→23:55)
[2018-04-18] MEDS: NORMAL SALINE 1000 ML 1,000 ML IV PRN ×2 (03:12→23:21)
[2018-04-18] MEDS: ONDANSETRON 4 MG TAB.RAPDIS PO PRN (03:12)
[2018-04-18 05:06] LABS: HEMATOCRIT 28.8 % (37.9-51.0); HEMOGLOBIN 9.3 g/dL (13.5-17.0); MEAN CORPUSCULAR HEMOGLOBIN 24.5 pg (27.0-33.4); MEAN CORPUSCULAR HGB CONC 32.4 g/dL (32.0-36.0); MEAN CORPUSCULAR VOLUME 76 fl (80-97); PLATELET COUNT 127 10^3/uL (150-450); RED BLOOD COUNT 3.81 10^6/uL (4.35-5.55); RED CELL DISTRIBUTION WIDTH 21.8 % (11.5-14.0); WHITE BLOOD COUNT 8.3 10^3/uL (4.0-10.5)
[2018-04-18 05:08] LABS: ANION GAP 12 (5-19); BLOOD UREA NITROGEN 8 mg/dL (7-20); CALCIUM 8.1 mg/dL (8.4-10.2); CHLORIDE 100 mmol/L (98-107); GLUCOSE 127 mg/dL (75-110); SODIUM 136.5 mmol/L (137-145)
[2018-04-18 05:16] LABS: CARBON DIOXIDE 25 mmol/L (22-30)
[2018-04-18] MEDS: LANSOPRAZOLE 30 MG TAB.RAP.DR PO SCH ×2 (05:16→16:24)
[2018-04-18] MEDS: METHYLPREDNISOLONE INJ 40 MG/1 ML SDV IV SCH ×3 (05:16→22:02)
[2018-04-18 05:41] LABS: ABSOLUTE LYMPHOCYTES# (MANUAL) 0.4 10^3/uL (0.5-4.7); ABSOLUTE MONOCYTES # (MANUAL) 0.3 10^3/uL (0.1-1.4); ABSOLUTE NEUTROPHILS# (MANUAL) 7.6 10^3/uL (1.7-8.2); BAND NEUTROPHILS % (MANUAL) 1 % (3-5); BASOPHILS % (MANUAL) 0 % (0-2); EOSINOPHILS % (MANUAL) 0 % (0-6); LYMPHOCYTES % (MANUAL) 5 % (13-45); MONOCYTES % (MANUAL) 4 % (3-13); NUCLEATED RED BLOOD CELLS 1 /100 WBC (0); SEGMENTED NEUTROPHILS % (MAN) 90 % (42-78); TOTAL CELLS COUNTED 100
[2018-04-18 05:45] LABS: ANISOCYTOSIS 3+; HYPOCHROMASIA 2+; POIKILOCYTOSIS 1+; SPHEROCYTES 1+
[2018-04-18 05:46] LABS: PLATELET CLUMPS PRESENT; PLATELET COMMENT DECREASED
--- NOTE | 2018-04-18 09:57 | EKG REPORT ---
SEVERITY:- ABNORMAL ECG - SINUS RHYTHM BORDERLINE PROLONGED QT INTERVAL : Confirmed by: Basilia Merida 18-Apr-2018 09:56:17
[2018-04-18] MEDS: ASPIRIN 81 MG TABLET, CHEWABLE PO SCH (10:11)
[2018-04-18] MEDS: CITALOPRAM HYDROBROMIDE 20 MG TABLET PO SCH (10:11)
[2018-04-18] MEDS: IPRATROPIUM/ALBUTEROL 0.5-2.5 MG/3 ML AMPUL NEB PRN (10:11)
[2018-04-18] MEDS: GUAIFENESIN 600 MG TABLET.SA PO SCH ×2 (10:12→22:00)
[2018-04-18] MEDS: LISINOPRIL 10 MG TABLET PO SCH ×2 (10:12→21:58)
[2018-04-18] MEDS: GABAPENTIN 300 MG CAPSULE PO SCH ×3 (10:12→18:12)
[2018-04-18] MEDS: FUROSEMIDE 20 MG TABLET PO SCH (10:12)
[2018-04-18] MEDS: OMEGA-3 ACID ETHYL ESTERS 1 GM CAPSULE PO SCH (10:13)
[2018-04-18] MEDS: CEFTRIAXONE 2 GM/D5W RTU 2 GM/50 ML RTUPB IV SCH (10:13)
[2018-04-18] MEDS: FLUTICASONE NASAL SPRAY 50 MCG/SPRY 120 SPRAY/16 GM NASL SCH ×2 (10:13→22:02)
[2018-04-18] MEDS: FOLIC ACID 1 MG TABLET PO SCH (10:13)
[2018-04-18] MEDS: ENOXAPARIN SODIUM INJ 40 MG/0.4 ML DISP.SYRIN SUBCUT SCH (10:16)
--- NOTE | 2018-04-18 15:16 | PDOC PROGRESS REPORT ---
Subjective Progress Note for:: 04/18/18 Subjective:: Patient noted to be lethargic and tired today. Patient is denying any chest, neck discomfort. Patient otherwise comfortable. Laying in bed without any obvious discomfort. Telemetry strip shows sinus rhythm with mild intermittent sinus tachycardia. Reason For Visit: COPD EXACERBATION Physical Exam Vital Signs: Temp Pulse Resp BP Pulse Ox 98.5 F 87 22 H 115/77 94 04/18/18 12:02 04/18/18 12:02 04/18/18 12:02 04/18/18 12:02 04/18/18 12:02 Intake & Output 04/17/18 04/18/18 04/19/18 06:59 06:59 06:59 Intake Total 3000 0 Output Total 100 500 Balance 2900 -500 Weight 68 kg 68.3 kg Exam: GENERAL: well-nourished and in no acute distress. Alert and oriented x3, intermittent confusion reported HEAD: Atraumatic, normocephalic. EYES: Pupils equal round and reactive to light, extraocular movements intact, sclera anicteric, conjunctiva are normal. ENT: TMs normal, nares patent, oropharynx clear without exudates. Moist mucous membranes. No oral ulcerations or bleeding gums noted NECK: supple without lymphadenopathy. Trachea is central. No cervical or axillary lymphadenopathy noted. Carotids are 2+, JVD WNL LUNGS: Respiration seems nonlabored, no significant accessory muscle action noted. Breath sounds clear to auscultation bilaterally and equal noted. No wheezes rales or rhonchi noted. No significant dullness noted on percussion. CHEST: Palpation of the chest wall shows no significant chest wall tenderness. HEART: [place] [employer], No PSH, 1/6 MARAH aortic area, 1/6 morrison systolic murmur mitral area, no rubs, no gallops. ABDOMEN: Soft, no significant tenderness appreciated, normoactive bowel sounds. No guarding, no rebound. No rigidity noted . No masses appreciated. EXTREMITIES: Pedal pulses are 1-2+, no calf tenderness noted. No clubbing or cyanosis. negative pedal edema noted NEUROLOGICAL: Focused neurological exam showed no significant neurologic deficit. Normal speech, no focal weakness appreciated. PSYCH: Normal mood, normal affect. Judgment and insight within normal limits. SKIN: No significant ecchymosis, skin is noted to be warm. MUSCULOSKELETAL EXAM: No significant acute joint swelling noted. Results Laboratory Results: 04/18/18 04:25 04/18/18 04:25 04/18/18 04/18/18 04:25 04:25 WBC 8.3 RBC 3.81 L Hgb 9.3 L Hct 28.8 L MCV 76 L MCH 24.5 L MCHC 32.4 RDW 21.8 H Plt Count 127 L Seg Neutrophils % Not Reportable Lymphocytes % Not Reportable Monocytes % Not Reportable Eosinophils % Not Reportable Basophils % Not Reportable Absolute Neutrophils Not Reportable Absolute Lymphocytes Not Reportable Absolute Monocytes Not Reportable Absolute Eosinophils Not Reportable Absolute Basophils Not Reportable Sodium 136.5 L Potassium 4.0 Chloride 100 Carbon Dioxide 25 D Anion Gap 12 BUN 8 Creatinine 0.51 L Est GFR ( Amer) > 60 Est GFR (Non-Af Amer) > 60 Glucose 127 H Calcium 8.1 L 04/17/18 04/17/18 04/17/18 04:34 04:34 11:34 Creatine Kinase 69 63 CK-MB (CK-2) 1.07 Troponin I < 0.012 04/17/18 04/17/18 04/17/18 11:34 17:45 17:45 Creatine Kinase 87 CK-MB (CK-2) 1.49 1.77 Troponin I < 0.012 < 0.012 EKG Comments: Telemetry strip shows sinus rhythm with intermittent mild sinus tachycardia Assessment & Plan - Diagnosis (1) Chest pain Qualifiers: Chest pain type: unspecified Qualified Code(s): R07.9 - Chest pain, unspecified Is this a current diagnosis for this admission?: Yes (2) COPD exacerbation Is this a current diagnosis for this admission?: Yes (3) GERD (gastroesophageal reflux disease) Is this a current diagnosis for this admission?: Yes (4) Hypertension Qualifiers: Hypertension type: essential hypertension Qualified Code(s): I10 - Essential (primary) hypertension Is this a current diagnosis for this admission?: Yes (5) Tobacco abuse Is this a current diagnosis for this admission?: Yes (6) Alcohol intoxication Qualifiers: Complication of substance-induced condition: with unspecified complication Qualified Code(s): F10.929 - Alcohol use, unspecified with intoxication, unspecified Is this a current diagnosis for this admission?: Yes (7) Alcohol abuse Is this a current diagnosis for this admission?: Yes - Notes Notes: Patient still unable to undergo a stress test. Will order that for tomorrow. 2D echocardiogram still pending. Chest pain: Patient does have significant cardiac risk factors which includes hypertension, tobacco abuse. Patient will benefit from a nuclear stress test. We will do follow-up echocardiogram for thoracic aortic aneurysm and for any wall motion abnormalities. We will continue to follow closely and is scheduled when patient is able to tolerate a pharmacologic stress test. COPD exacerbation: Patient has been advised to quit smoking. Continue therapy as prescribed by the hospitalist. Gastroesophageal reflux disease: This is in the differential diagnosis of chest pain. Recommend double dose proton pump inhibitor. Hypertension: Patient has prior history of thoracic aorta dilatation. Recommend good control of blood pressure especially with beta-dustin if no contraindication. Blood pressure goal should be 135/85 or less. Tobacco abuse: Patient has been advised to quit smoking. Alcohol abuse: Patient currently seems to be withdrawing. Observe closely. Treat with benzodiazepines, beta-dustin as needed. - Time Time with patient: 15-25 minutes - CODE STATUS was discussed, patient remains full code. Surrogate decision-maker unchanged. Multiple medical problems were addressed. More than 50% of the time spent coordinating care, discussing management plans with involved caregivers. Management plans discussed with involved personnels. Medical decision making was of moderate to high complexity , patient's has multiple comorbidities. Medications reviewed and adjusted accordingly: Yes
--- NOTE | 2018-04-18 16:52 | PDOC PROGRESS REPORT ---
Subjective Progress Note for:: 04/18/18 Subjective:: This is 47 years old male patient with past medical history of alcohol dependency, chronic opiate use COPD and hypertension admitted for shortness of breath due to acute COPD exacerbation. Patient also complaining of chest pain which looks more of a typical. At that admission his blood alcohol level was 302. Patient scheduled for cardiac stress test tomorrow. Reason For Visit: COPD EXACERBATION Physical Exam Vital Signs: Temp Pulse Resp BP Pulse Ox 97.7 F 71 20 118/82 94 04/18/18 16:23 04/18/18 16:23 04/18/18 16:23 04/18/18 16:23 04/18/18 16:23 Intake & Output 04/17/18 04/18/18 04/19/18 06:59 06:59 06:59 Intake Total 3000 0 Output Total 100 500 Balance 2900 -500 Weight 68 kg 68.3 kg Results Laboratory Results: 04/18/18 04:25 04/18/18 04:25 04/18/18 04/18/18 04:25 04:25 WBC 8.3 RBC 3.81 L Hgb 9.3 L Hct 28.8 L MCV 76 L MCH 24.5 L MCHC 32.4 RDW 21.8 H Plt Count 127 L Seg Neutrophils % Not Reportable Lymphocytes % Not Reportable Monocytes % Not Reportable Eosinophils % Not Reportable Basophils % Not Reportable Absolute Neutrophils Not Reportable Absolute Lymphocytes Not Reportable Absolute Monocytes Not Reportable Absolute Eosinophils Not Reportable Absolute Basophils Not Reportable Sodium 136.5 L Potassium 4.0 Chloride 100 Carbon Dioxide 25 D Anion Gap 12 BUN 8 Creatinine 0.51 L Est GFR ( Amer) > 60 Est GFR (Non-Af Amer) > 60 Glucose 127 H Calcium 8.1 L 04/17/18 04/17/18 04/17/18 04:34 04:34 11:34 Creatine Kinase 69 63 CK-MB (CK-2) 1.07 Troponin I < 0.012 04/17/18 04/17/18 04/17/18 11:34 17:45 17:45 Creatine Kinase 87 CK-MB (CK-2) 1.49 1.77 Troponin I < 0.012 < 0.012 Assessment & Plan - Diagnosis (1) COPD with acute exacerbation Is this a current diagnosis for this admission?: Yes Plan: Patient has been on bronchodilator and supplemental oxygen. (2) Atypical chest pain Is this a current diagnosis for this admission?: Yes Plan: Cardiac enzymes are negative and no EKG changes. Patient will have cardiac stress test in the morning. (3) Alcohol dependence with intoxication Is this a current diagnosis for this admission?: Yes Plan: I counseled and encouraged the patient to quit alcohol. Patient has been on gentle hydration thiamine and vitamins. He is getting Ativan as needed and started on diazepam 10 mg p.o. every 6 hours. (4) Hypertension Qualifiers: Hypertension type: essential hypertension Qualified Code(s): I10 - Essential (primary) hypertension Is this a current diagnosis for this admission?: Yes Plan: Continue home medication. (5) Tobacco dependence Is this a current diagnosis for this admission?: Yes Plan: Patient advised to quit smoking. - Time Time Spent with patient: 25-34 minutes
[2018-04-18] MEDS: NORMAL SALINE 1000 ML 1,000 ML with POTASSIUM CHLORIDE 20 MEQ, MAGNESIUM SULFATE 8 MEQ,... IV SCH ×5 (18:12)
[2018-04-18] MEDS ORDERED: LOPERAMIDE HCL 2 MG CAPSULE PO PRN (19:03)
[2018-04-18] MEDS ORDERED: LOPERAMIDE HCL 2 MG CAPSULE PO ONE (19:30)
[2018-04-18] MEDS: MONTELUKAST SODIUM 10 MG TABLET PO SCH (21:58)
[2018-04-19] MEDS: LORAZEPAM INJ 2 MG/1 ML VIAL IV PRN ×3 (02:31→13:58)
[2018-04-19] MEDS: LANSOPRAZOLE 30 MG TAB.RAP.DR PO SCH (05:39)
[2018-04-19] MEDS: METHYLPREDNISOLONE INJ 40 MG/1 ML SDV IV SCH ×2 (05:42→13:56)
[2018-04-19 06:06] LABS: HEMATOCRIT 31.6 % (37.9-51.0); MEAN CORPUSCULAR HEMOGLOBIN 24.2 pg (27.0-33.4); MEAN CORPUSCULAR HGB CONC 31.7 g/dL (32.0-36.0); MEAN CORPUSCULAR VOLUME 77 fl (80-97); PLATELET COUNT 106 10^3/uL (150-450); RED BLOOD COUNT 4.13 10^6/uL (4.35-5.55); RED CELL DISTRIBUTION WIDTH 21.9 % (11.5-14.0); WHITE BLOOD COUNT 9.1 10^3/uL (4.0-10.5)
[2018-04-19 06:26] LABS: ANION GAP 12 (5-19); BLOOD UREA NITROGEN 9 mg/dL (7-20); CALCIUM 8.2 mg/dL (8.4-10.2); CARBON DIOXIDE 26 mmol/L (22-30); CHLORIDE 97 mmol/L (98-107); GLUCOSE 112 mg/dL (75-110); SODIUM 135.4 mmol/L (137-145)
[2018-04-19 06:52] LABS: ABSOLUTE LYMPHOCYTES# (MANUAL) 0.8 10^3/uL (0.5-4.7); ABSOLUTE MONOCYTES # (MANUAL) 0.3 10^3/uL (0.1-1.4); BASOPHILS % (MANUAL) 0 % (0-2); EOSINOPHILS % (MANUAL) 0 % (0-6); LYMPHOCYTES % (MANUAL) 9 % (13-45); MONOCYTES % (MANUAL) 3 % (3-13); SEGMENTED NEUTROPHILS % (MAN) 88 % (42-78); TOTAL CELLS COUNTED 100
[2018-04-19 06:54] LABS: ANISOCYTOSIS 3+; HYPOCHROMASIA 1+; POIKILOCYTOSIS 1+
[2018-04-19 06:55] LABS: OVALOCYTES 1+; PLATELET COMMENT DECREASED; PLATELET LARGE PRESENT
[2018-04-19] MEDS: OMEGA-3 ACID ETHYL ESTERS 1 GM CAPSULE PO SCH (11:27)
[2018-04-19] MEDS: CITALOPRAM HYDROBROMIDE 20 MG TABLET PO SCH (11:27)
[2018-04-19] MEDS: FUROSEMIDE 20 MG TABLET PO SCH (11:27)
[2018-04-19] MEDS: LISINOPRIL 10 MG TABLET PO SCH (11:27)
[2018-04-19] MEDS: FOLIC ACID 1 MG TABLET PO SCH (11:27)
[2018-04-19] MEDS: ASPIRIN 81 MG TABLET, CHEWABLE PO SCH (11:28)
[2018-04-19] MEDS: GABAPENTIN 300 MG CAPSULE PO SCH ×2 (11:28→13:56)
[2018-04-19] MEDS: GUAIFENESIN 600 MG TABLET.SA PO SCH (11:28)
[2018-04-19] MEDS: FLUTICASONE NASAL SPRAY 50 MCG/SPRY 120 SPRAY/16 GM NASL SCH (11:30)
[2018-04-19] MEDS: CEFTRIAXONE 2 GM/D5W RTU 2 GM/50 ML RTUPB IV SCH ×2 (11:31→12:39)
[2018-04-19] MEDS ORDERED: REGADENOSON INJ 0.4 MG/5 ML DISP.SYRIN IV ONE (12:18)
[2018-04-19] MEDS: NORMAL SALINE 1000 ML 1,000 ML IV PRN (12:35)
[2018-04-19] MEDS: ONDANSETRON 4 MG TAB.RAPDIS PO PRN (13:56)
[2018-04-19] MEDS: IPRATROPIUM/ALBUTEROL 0.5-2.5 MG/3 ML AMPUL NEB PRN (16:07)
--- NOTE | 2018-04-19 16:51 | PDOC DISCHARGE SUMMARY ---
General - Admit/Disc Date/PCP Admission Date/Primary Care Provider: 04/17/18 02:58 Discharge Date: 04/19/18 - Discharge Diagnosis (1) COPD with acute exacerbation Is this a current diagnosis for this admission?: Yes (2) Atypical chest pain Is this a current diagnosis for this admission?: Yes (3) Alcohol dependence with intoxication Is this a current diagnosis for this admission?: Yes (4) Hypertension Is this a current diagnosis for this admission?: Yes (5) Tobacco dependence Is this a current diagnosis for this admission?: Yes - Additional Information Resuscitation Status: Full Code Home Medications: Alprazolam 1 mg PO TIDP PRN 02/14/17 Budesonide/Formoterol Fumarate [Symbicort HFA 160-4.5 mcg Inhaler 6 gm] 2 puff IH Q12 02/14/17 Citalopram Hydrobromide [Celexa 40 mg Tablet] 40 mg PO DAILY 02/14/17 Gabapentin 600 mg PO Q8HP PRN 02/14/17 Fluticasone Propionate [Flonase Nasal [place] 50 Mcg/[place] 16 gm] 1 spray NASL Q12 #1 bot 02/20/17 Furosemide [Lasix 20 mg Tablet] 20 mg PO DAILY #30 tablet 02/20/17 Esomeprazole Mag Trihydrate [Nexium] 40 mg PO DAILY 04/17/18 Oxycodone HCl 15 mg PO Q6HP PRN 04/17/18 Potassium Chloride [Klor-Con 10 Meq Capsule ER] 10 meq PO DAILY 04/17/18 History of Present Illness History of Present Illness: CLAYTON GORMAN is a 47 year old male with history of multiple medical problems though mentioned below presented in the emergency room with acute onset of dyspnea with associated cough productive of clear sputum and wheezing which have been worsening over the last 4 days. He denies any fever however has been having chills. He denied any nausea or vomiting. He admitted to left-sided chest tightness and there is moderate in intensity with no radiation. No headache or dizziness or blurred vision. He was feeling slightly jittery and nervous in the ER. When he came his EKG showed sinus tachycardia with a rate 122 the left axis deviation. Chest x-ray showed no acute cardiopulmonary disease. His labs revealed Mild leukocytosis and anemia and his anion gap was 22 CO2 20 and total protein of 8.4. CMP otherwise within normal and troponin was less than 0.0 12. Alcohol level was 392. Patient received IV thiamine as well as folic acid and hydration with IV normal saline in the ER in addition to Ativan for early alcohol withdrawal. The patient will be admitted to an [facility] bed for further evaluation and management. Hospital Course Hospital Course: This is 47 years old male patient with past medical history of alcohol dependency, chronic opiate use COPD and hypertension admitted for shortness of breath due to acute COPD exacerbation. Patient also complaining of chest pain which looks more of a typical. At that admission his blood alcohol level was 302. History set of cardiac enzymes are negative. No EKG changes. This morning patient has cardiac stress test and reportedly it is negative. I discussed the case with Dr. Merida he said patient can be discharged safely. During his stay patient was managed for his COPD exacerbation with bronchodilator and supplemental oxygen. His labs and vital signs are stable and patient is stable enough to be discharged. I have a long discussion regarding his his alcohol and tobacco dependency and I tried to convince him that he needs to quit both his habits and he voices agreement. Physical Exam Vital Signs: Temp Pulse Resp BP Pulse Ox 98.0 F 80 16 135/86 H 96 04/19/18 12:36 04/19/18 16:08 04/19/18 16:08 04/19/18 12:36 04/19/18 16:08 Intake & Output 04/18/18 04/19/18 04/20/18 06:59 06:59 06:59 Intake Total 3000 3378 1510 Output Total 100 1000 875 Balance 2900 2378 635 Weight 68.3 kg 66.6 kg General appearance: PRESENT: no acute distress Head exam: PRESENT: atraumatic Eye exam: PRESENT: conjunctiva pink Mouth exam: PRESENT: moist Neck exam: ABSENT: carotid bruit, JVD, lymphadenopathy, thyromegaly Respiratory exam: PRESENT: other - Occasional wheezing bilaterally GI/Abdominal exam: PRESENT: normal bowel sounds, soft. ABSENT: distended, guarding, mass, organolmegaly, rebound, tenderness Neurological exam: PRESENT: alert, awake, oriented to time, oriented to situation Results Laboratory Results: 04/19/18 05:35 04/19/18 05:35 04/19/18 04/19/18 05:35 05:35 WBC 9.1 RBC 4.13 L Hgb 10.0 L Hct 31.6 L MCV 77 L MCH 24.2 L MCHC 31.7 L RDW 21.9 H Plt Count 106 L Seg Neutrophils % Not Reportable Lymphocytes % Not Reportable Monocytes % Not Reportable Eosinophils % Not Reportable Basophils % Not Reportable Absolute Neutrophils Not Reportable Absolute Lymphocytes Not Reportable Absolute Monocytes Not Reportable Absolute Eosinophils Not Reportable Absolute Basophils Not Reportable Sodium 135.4 L Potassium 4.0 Chloride 97 L Carbon Dioxide 26 Anion Gap 12 BUN 9 Creatinine 0.52 Est GFR ( Amer) > 60 Est GFR (Non-Af Amer) > 60 Glucose 112 H Calcium 8.2 L 04/17/18 04/17/18 04/17/18 04:34 04:34 11:34 Creatine Kinase 69 63 CK-MB (CK-2) 1.07 Troponin I < 0.012 04/17/18 04/17/18 04/17/18 11:34 17:45 17:45 Creatine Kinase 87 CK-MB (CK-2) 1.49 1.77 Troponin I < 0.012 < 0.012 Qualifiers - * PATIENT BEING DISCHARGED WITH ANY OF THE FOLLOWING DIAGNOSIS: No
[2018-04-19 17:34] VITALS: BP 118/82
--- NOTE | 2018-04-19 17:41 | XCELERA REPORT ---
[address] [address] Transthoracic Echocardiogram Report Name: CLAYTON GORMAN Age: 47 yrs Gender: Male : 1970 Patient Status: Inpatient Patient Location: [address] [place] [address] Study Date: 04/19/2018 02:04 PM Procedure: A complete two-dimensional transthoracic echocardiogram was performed (2D, M-mode, spectral and color flow Doppler). The study was technically limited with all images being suboptimal in quality. Reason For Study: Chest pain, thoracic aortic aneurysm Ordering Physician: BASILIA LOPEZ Performed By: Lia Marte Interpretation Summary The left ventricular ejection fraction is preserved. Consider additional methods to assess LVEF such as MUGA scan, CTA heart, cardiac MRI, JAMIA, etc. if clinically indicated. There is borderline concentric left ventricular hypertrophy. The left ventricle is grossly normal size. Doppler measurements suggest impaired left ventricular relaxation, which is associated with grade I/IV or mild diastolic dysfunction Regional wall motion abnormalities cannot be excluded due to limited visualization. The right ventricle is not well visualized secondary to technical limitations The right atrium is normal in size The left atrium is borderline dilated. There is no mitral regurgitation noted. There is no mitral valve stenosis. There is no aortic valve stenosis No aortic regurgitation is present. The tricuspid valve is not well visualized secondary to technical limitations The pulmonic valve is not well visualized. The aortic root is not well visualized. The inferior vena cava was not visualized There is no pericardial effusion. Consider alternative methods to evaluate LVEF such as MUGA scan, cardiac MRI, or cardiac CTA. MMode/2D Measurements & Calculations RVDd: 2.5 cm LVIDd: 3.6 cm EDV(Teich): 54.6 ml Ao root diam: 3.0 cm IVSd: 0.82 cm LVPWd: 0.94 cm Ao root area: 7.3 cm2 Doppler Measurements & Calculations MV E max lawrence: MV dec slope: Ao V2 max: LV V1 max P.1 cm/sec 104.6 cm/sec 3.9 mmHg MV A max lawrence: 396.1 cm/sec2 Ao max PG: LV V1 max: 1.1 cm/sec MV dec time: 4.4 mmHg 99.2 cm/sec MV E/A: 75.8 0.22 sec Left Ventricle The left ventricle is grossly normal size. There is borderline concentric left ventricular hypertrophy. The left ventricular ejection fraction is preserved. Consider additional methods to assess LVEF such as MUGA scan, CTA heart, cardiac MRI, JAMIA, etc. if clinically indicated. Doppler measurements suggest impaired left ventricular relaxation, which is associated with grade I/IV or mild diastolic dysfunction. Regional wall motion abnormalities cannot be excluded due to limited visualization. Right Ventricle The right ventricle is not well visualized secondary to technical limitations. Atria The right atrium is normal in size. The left atrium is borderline dilated. Mitral Valve The mitral valve is not well visualized. There is no mitral valve stenosis. There is no mitral regurgitation noted. Aortic Valve The aortic valve is not well visualized secondary to technical limitations. There is no aortic valve stenosis. No aortic regurgitation is present. Tricuspid Valve The tricuspid valve is not well visualized secondary to technical limitations. Pulmonic Valve The pulmonic valve is not well visualized. Great Vessels The aortic root is not well visualized. The inferior vena cava was not visualized. Effusions There is no pericardial effusion. Incidental Findings Consider alternative methods to evaluate LVEF such as MUGA scan, cardiac MRI, or cardiac CTA. : BASILIA LOPEZ > Basilia Lopez
--- NOTE | 2018-04-19 18:58 | PDOC PROGRESS REPORT ---
Subjective Progress Note for:: 04/19/18 Subjective:: Patient is denying any chest, neck discomfort. Patient otherwise comfortable. Laying in bed without any obvious discomfort. Telemetry strip shows sinus rhythm. No significant sustained tachycardia or bradycardia noted. In the morning nuclear stress test seizure was discussed in detail. Risk benefits were discussed. Patient agreed to proceed with it. Reason For Visit: COPD EXACERBATION Physical Exam Vital Signs: Temp Pulse Resp BP Pulse Ox 98.0 F 80 16 118/82 96 04/19/18 17:33 04/19/18 17:33 04/19/18 17:33 04/19/18 17:33 04/19/18 17:33 Intake & Output 04/18/18 04/19/18 04/20/18 06:59 06:59 06:59 Intake Total 3000 3378 1510 Output Total 100 1000 875 Balance 2900 2378 635 Weight 68.3 kg 66.6 kg Exam: GENERAL: well-nourished and in no acute distress. Alert and oriented x3 HEAD: Atraumatic, normocephalic. EYES: Pupils equal round and reactive to light, extraocular movements intact, sclera anicteric, conjunctiva are normal. ENT: TMs normal, nares patent, oropharynx clear without exudates. Moist mucous membranes. No oral ulcerations or bleeding gums noted NECK: supple without lymphadenopathy. Trachea is central. No cervical or axillary lymphadenopathy noted. Carotids are 2+, JVD WNL LUNGS: Respiration seems nonlabored, no significant accessory muscle action noted. Breath sounds clear to auscultation bilaterally and equal noted. No wheezes rales or rhonchi noted. No significant dullness noted on percussion. CHEST: Palpation of the chest wall shows no significant chest wall tenderness. HEART: [employer], No PSH, 1/6 MARAH aortic area, 1/6 morrison systolic murmur mitral area, no rubs, no gallops. ABDOMEN: Soft, no significant tenderness appreciated, normoactive bowel sounds. No guarding, no rebound. No rigidity noted . No masses appreciated. EXTREMITIES: Pedal pulses are 1-2+, no calf tenderness noted. No clubbing or cyanosis. negative pedal edema noted NEUROLOGICAL: Focused neurological exam showed no significant neurologic deficit. Normal speech, no focal weakness appreciated. PSYCH: Normal mood, normal affect. Judgment and insight within normal limits. SKIN: No significant ecchymosis, skin is noted to be warm. MUSCULOSKELETAL EXAM: No significant acute joint swelling noted. Results Laboratory Results: 04/19/18 05:35 04/19/18 05:35 04/19/18 04/19/18 05:35 05:35 WBC 9.1 RBC 4.13 L Hgb 10.0 L Hct 31.6 L MCV 77 L MCH 24.2 L MCHC 31.7 L RDW 21.9 H Plt Count 106 L Seg Neutrophils % Not Reportable Lymphocytes % Not Reportable Monocytes % Not Reportable Eosinophils % Not Reportable Basophils % Not Reportable Absolute Neutrophils Not Reportable Absolute Lymphocytes Not Reportable Absolute Monocytes Not Reportable Absolute Eosinophils Not Reportable Absolute Basophils Not Reportable Sodium 135.4 L Potassium 4.0 Chloride 97 L Carbon Dioxide 26 Anion Gap 12 BUN 9 Creatinine 0.52 Est GFR ( Amer) > 60 Est GFR (Non-Af Amer) > 60 Glucose 112 H Calcium 8.2 L 04/17/18 04/17/18 04/17/18 04:34 04:34 11:34 Creatine Kinase 69 63 CK-MB (CK-2) 1.07 Troponin I < 0.012 04/17/18 04/17/18 04/17/18 11:34 17:45 17:45 Creatine Kinase 87 CK-MB (CK-2) 1.49 1.77 Troponin I < 0.012 < 0.012 EKG Comments: Telemetry strip shows sinus rhythm without any sustained tachycardia or bradycardia. Assessment & Plan - Diagnosis (1) Chest pain Qualifiers: Chest pain type: unspecified Qualified Code(s): R07.9 - Chest pain, unspecified Is this a current diagnosis for this admission?: Yes (2) COPD exacerbation Is this a current diagnosis for this admission?: Yes (3) GERD (gastroesophageal reflux disease) Is this a current diagnosis for this admission?: Yes (4) Hypertension Qualifiers: Hypertension type: essential hypertension Qualified Code(s): I10 - Essential (primary) hypertension Is this a current diagnosis for this admission?: Yes (5) Tobacco abuse Is this a current diagnosis for this admission?: Yes (6) Alcohol intoxication Qualifiers: Complication of substance-induced condition: with unspecified complication Qualified Code(s): F10.929 - Alcohol use, unspecified with intoxication, unspecified Is this a current diagnosis for this admission?: Yes (7) Alcohol abuse Is this a current diagnosis for this admission?: Yes - Notes Notes: Chest pain: Patient does have significant cardiac risk factors which includes hypertension, tobacco abuse. Patient will benefit from a nuclear stress test. We will do follow-up echocardiogram for thoracic aortic aneurysm and for any wall motion abnormalities. Patient did undergo a nuclear stress test but because of significant artifact and visceral contamination, it was difficult to be definitive but did not find any significant ischemia. 2D echo results reviewed shows normal LVEF. No significant stenotic or regurgitant valve disease was noted. COPD exacerbation: Patient has been advised to quit smoking. Continue therapy as prescribed by the hospitalist. Gastroesophageal reflux disease: This is in the differential diagnosis of chest pain. Recommend double dose proton pump inhibitor. Hypertension: Patient has prior history of thoracic aorta dilatation. Recommend good control of blood pressure especially with beta-dustin if no contraindication. Blood pressure goal should be 135/85 or less. Tobacco abuse: Patient has been advised to quit smoking. Alcohol abuse: Patient was told to avoid alcohol. - Time Time with patient: Greater than 35 minutes - Nuclear stress test and echo results discussed. No acute intervention needed based on these results. Feel that patient is safe for discharge. Patient can follow-up with me if he decides to do so. Patient is discussed with hospitalist. Medications reviewed and adjusted accordingly: Yes
--- NOTE | 2018-04-20 17:01 | DRAGON STRESS TEST REPORT ---
INTRAVENOUS LEXISCAN CARDIOLITE STRESS TEST USING SINGLE PHOTON EMMISION COMPUTERIZED TOMOGRAPHIC. DATE OF PROCEDURE: April 19, 2018, INDICATION : Chest pain CARDIAC RISK FACTORS: Hypertension and tobacco abuse RESTING EKG: Sinus rhythm, ST segment depression and T-wave inversion noted in lead I and aVL consistent with LVH. STRESS EKG: No significant ST segment changes noted with LexiScan bolus REASON FOR TERMINATION: Protocol. PROCEDURE REPORT: Baseline heart rate 72 beats per minute with blood pressure of 127/85. Patient had no significant complaints. Patient was bolused with Lexiscan 0.4 mg intravenously followed by saline bolus. Heart rate at 2 minutes post bolus 130 with a blood pressure of 143/94. 3 minutes post bolus heart rate 120 with blood pressure of 133/91. No significant EKG changes were noted. Patient had no significant complaints during the procedure or postprocedure. CONCLUSIONS: Normal EKG and hemodynamic response to IV LexiScan. NUCLEAR DATA: At rest the patient was given 10.27 millicuries of technetium 99 sestamibi injected intravenously. As per protocol rest gated SPECT images were obtained. On day of stress test, the patient was given intravenous LexiScan at a dose of 0.4 mg in 5 mL intravenously, followed by flush with normal saline. Subsequently the stress dose of 32.9 millicuries of technetium 99 sestamibi was injected intravenously. As per protocol stress gated images were obtained. NUCLEAR INTERPRETATION: Both raw and processed data were used for interpretation. Visual, qualitative, computer-generated quantitative data was used. Overall myocardial uptake was difficult to assess because of significant overlap with marked increased visceral contamination from either hiatal hernia or severely elevated left hemidiaphragm. Raw images showed no significant area of fixed or transient perfusion defect. Computer-generated images were technically limited because of artifacts. A cardiac MRI stress test would be a better option in future. EKG gated imaging showed LV EF at 62 %, rest and stress gated EF similar visually. T. I D. ratio was 0.73. Lung heart ratio noted to be within normal limits 0.40. No significant extracardiac and abnormal radiotracer activities were noted. RV free wall uptake was noted to be increased. IMPRESSION: Also refer to comments under nuclear interpretation. Also test results needs to be interpreted in the context of pretest probability. Study was technically difficult and somewhat limited. Please see note under nuclear interpretation. 1. Overall myocardial uptake was difficult to assess because of significant overlap with marked increased visceral contamination from either hiatal hernia or severely elevated left hemidiaphragm. Raw images showed no significant area of fixed or transient perfusion defect. Computer-generated images were technically limited because of artifacts. 2. RV free wall uptake was noted to be increased. 3. EKG gated imaging shows left ventricular ejection fraction of approx. 62 %. 4. Clinical correlation requested as study quality was technically difficult. In approximately 10% of the cases Lexiscan may not cause adequate vasodilatory stress. RECOMMENDATIONS: Aggressive risk factor modification and medical management. Further evaluation may be needed if continued symptoms or other high risk indicators are noted on clinical evaluation. Close cardiology follow-up is also recommended. Clinical correlation with echocardiogram derived ejection fraction. Inability to exercise by itself can lead to increased cardiovascular event risks. Consider cardiology consultation and or follow-up if clinically indicated. I am available for cardiology evaluation and consultation if requested by the marine pilot, unless patient already has a senior restaurant manager. Dr. Nicolette Merida. MRCP Board certified in cardiology and sleep medicine. Board certified in nuclear cardiology, adult echocardiography. MEIR
== END 2018-04-19 18:16 | disposition home or self-care (01) | DRG 192 ==
LOC: ER 00:02 → EH 02:58 → 3W 15:17
PROVIDERS: ADMIT Family Medicine; ATTEND Family Medicine
PROC: 3E0F73Z Introduction of Anti-inflammatory into Respiratory Tract, Via Natural or Artificial Opening (ICD-10-PCS; principal; 2018-04-17)
DX: J44.1 Chronic obstructive pulmonary disease with (acute) exacerbation (principal); F10.229 Alcohol dependence with intoxication, unspecified; Y90.8 Blood alcohol level of 240 mg/100 ml or more; I10 Essential (primary) hypertension; R07.89 Other chest pain; D64.9 Anemia, unspecified; F17.210 Nicotine dependence, cigarettes, uncomplicated; K21.9 Gastro-esophageal reflux disease without esophagitis; R00.0 Tachycardia, unspecified; Z60.2 Problems related to living alone; F41.9 Anxiety disorder, unspecified; F32.9 Major depressive disorder, single episode, unspecified; G62.9 Polyneuropathy, unspecified; K44.9 Diaphragmatic hernia without obstruction or gangrene; Z79.891 Long term (current) use of opiate analgesic; Z79.899 Other long term (current) drug therapy; Z82.49 Family history of ischemic heart disease and other diseases of the circulatory system
CPT/HCPCS: 36415; 71045; 78452; 80048; 80053; 80307; 82550; 82553; 84484; 85025; 87040; 87077; 87186; 93005; 93010; 93017; 93306; 94640; 96365; 99285; A9500; J0456; J0696; J1650; J2060; J2785; J2920; J3411; J3475; J3480; J3490; J7030; J7050; J7620; Q9969; S0119